=== PATIENT | male | born 1960 | race Caucasian/White ===

== ENCOUNTER 2022-06-05 14:26 | Outpatient (CLI) | payer OTHER, SELFPAY | END 2022-06-05 14:27 | disposition home or self-care (01) | LOC: ANHAUDIO 14:27 | PROVIDERS: PCP Family Medicine; Visit Provider Family Medicine | DX: H91.90 Unspecified hearing loss, unspecified ear (principal) | CPT/HCPCS: 92557; 92567 ==

== ENCOUNTER 2022-06-26 11:45 | Outpatient (CLI) | payer OTHER, SELFPAY ==
[2022-06-26 22:09] LABS: Hemoglobin A1C 8.2 % (<5.7)
== END 2022-06-26 11:46 | disposition home or self-care (01) ==
LOC: ANHGOSHLAB 11:47
PROVIDERS: PCP Family Medicine; Visit Provider Family Medicine
DX: E03.9 Hypothyroidism, unspecified (principal); E11.620 Type 2 diabetes mellitus with diabetic dermatitis
CPT/HCPCS: 36415; 83036; 84443

== ENCOUNTER 2022-07-03 16:47 | Outpatient (CLI) | payer OTHER, SELFPAY ==
--- NOTE | ~2022-07-03 | US_ITS ---
EXAMINATION:US venous doppler LE RT INDICATION:Right leg pain TECHNIQUE: Multiple grayscale, color flow and Doppler images of the right lower extremity deep venous systems were obtained and reviewed. COMPARISON:Ultrasound dated 03/05/2007 FINDINGS: The common femoral, superficial femoral and popliteal veins demonstrate normal respiratory variation, augmentation and compressibility. Color flow is also seen within the posterior tibial, pe roneal, greater saphenous and profunda veins. IMPRESSION: 1: No lower extremity deep venous thrombosis. Reviewed, dictated and finalized at location A.
== END 2022-07-03 16:48 | disposition home or self-care (01) ==
PROVIDERS: PCP Family Medicine; Visit Provider Family Medicine
DX: I82.461 Acute embolism and thrombosis of right calf muscular vein (principal)
CPT/HCPCS: 93971

== ENCOUNTER 2023-01-07 14:16 | Outpatient (RCR) | payer OTHER, SELFPAY ==
[2023-01-07 14:31] VITALS: BMI 39.8
[2023-01-07 15:29] VITALS: BMI 39.8
== END 2023-03-24 08:25 | disposition home or self-care (01) ==
LOC: ANHDMC 14:16
PROVIDERS: PCP Family Medicine; Visit Provider Internal Medicine Endocrinology, Diabetes & Metabolism
DX: E11.65 Type 2 diabetes mellitus with hyperglycemia (principal); Z71.3 Dietary counseling and surveillance
CPT/HCPCS: 97802

== ENCOUNTER 2023-01-09 15:47 | Outpatient (CLI) | payer OTHER, SELFPAY ==
[2023-01-09 20:06] LABS: Alanine Aminotransferase 56 U/L (6-50); Albumin Level 4.7 g/dL (3.5-5.1); Alkaline Phosphatase 78 U/L (38-126); Anion Gap 5 mmol/L (8-16); Aspartate Amino Transferase 38 U/L (17-59); Bilirubin,Total 0.7 mg/dL (0.2-1.3); Blood Urea Nitrogen 11 mg/dL (9-20); Calcium 9.2 mg/dL (8.4-10.2); Carbon Dioxide 29 mmol/L (22-30); Chloride 101 mmol/L (98-107); Cholesterol 148 mg/dL (0-200); Estimated Glomerular Filt Rate > 60; Glucose 104 mg/dL (65-110); HDL Direct 40 mg/dL; Potassium 3.9 mmol/L (3.4-5.0); Sodium 135 mmol/L (137-145); Triglycerides 150 mg/dL (<150)
[2023-01-09 20:17] LABS: LDL Cholesterol Direct 81 mg/dL
[2023-01-09 21:03] LABS: Hemoglobin A1C 8.8 % (<5.7)
[2023-01-09 21:30] LABS: MALB Creatinine Ratio < 30.0 mg/g (0-30); Microalbumin Urine Random < 6.0 mg/L (0-16.7)
== END 2023-01-09 15:48 | disposition home or self-care (01) ==
LOC: ANHGOSHLAB 15:49
PROVIDERS: PCP Family Medicine; Visit Provider Family Medicine
DX: E11.9 Type 2 diabetes mellitus without complications (principal); E03.9 Hypothyroidism, unspecified
CPT/HCPCS: 36415; 80053; 80061; 82043; 83036; 84443

== ENCOUNTER 2023-05-14 15:46 | Outpatient (CLI) | payer OTHER, SELFPAY ==
[2023-05-14 22:35] LABS: Hemoglobin A1C 6.9 % (<5.7)
== END 2023-05-14 15:47 | disposition home or self-care (01) ==
LOC: ANHGOSHLAB 15:48
PROVIDERS: PCP Family Medicine; Visit Provider Nurse Practitioner Family
DX: E11.620 Type 2 diabetes mellitus with diabetic dermatitis (principal); E03.9 Hypothyroidism, unspecified
CPT/HCPCS: 36415; 83036; 84443

== ENCOUNTER 2023-08-14 12:38 | Outpatient (CLI) | payer OTHER, SELFPAY ==
[2023-08-14 13:56] LABS: Alanine Aminotransferase 58 U/L (6-50); Albumin Level 4.5 g/dL (3.5-5.1); Alkaline Phosphatase 67 U/L (38-126); Anion Gap 6 mmol/L (8-16); Aspartate Amino Transferase 53 U/L (17-59); Bilirubin,Total 0.8 mg/dL (0.2-1.3); Blood Urea Nitrogen 18 mg/dL (9-20); Calcium 9.4 mg/dL (8.4-10.2); Carbon Dioxide 34 mmol/L (22-30); Chloride 97 mmol/L (98-107); Cholesterol 143 mg/dL (0-200); Estimated Glomerular Filt Rate > 60; Glucose 93 mg/dL (65-110); HDL Direct 39 mg/dL; Potassium 3.8 mmol/L (3.4-5.0); Sodium 137 mmol/L (137-145); Triglycerides 125 mg/dL (<150)
[2023-08-14 14:07] LABS: LDL Cholesterol Direct 83 mg/dL
[2023-08-14 14:27] LABS: Thyroid Stimulating Hormone 0.186 uIU/mL (0.465-4.680)
[2023-08-14 15:34] LABS: MALB Creatinine Ratio 9.8 mg/g (0-30); Microalbumin Urine Random 6.1 mg/L (0-16.7)
[2023-08-14 18:14] LABS: Hemoglobin A1C 6.4 % (<5.7)
[2023-08-15 18:11] LABS: Prostate Specific Antigen 1.1 ng/mL (< OR = 4.0)
== END 2023-08-14 12:39 | disposition home or self-care (01) ==
LOC: ANHGOSHLAB 12:40
PROVIDERS: PCP Family Medicine; Visit Provider Family Medicine
DX: E03.9 Hypothyroidism, unspecified (principal); E11.9 Type 2 diabetes mellitus without complications; G57.90 Unspecified mononeuropathy of unspecified lower limb; Z12.5 Encounter for screening for malignant neoplasm of prostate
CPT/HCPCS: 36415; 80053; 80061; 82043; 82607; 83036; 84153; 84443; G0103

== ENCOUNTER 2024-04-16 11:02 | Outpatient (CLI) | payer OTHER, SELFPAY ==
--- NOTE | ~2024-04-16 | XR_ITS ---
EXAMINATION: XR lumbar spine 2-3V DATE: 04/16/2024 11:59 INDICATION: Chronic low back pain TECHNIQUE: Anteroposterior and lateral views of the lumbar spine, and cone-down lateral view of the l umbosacral junction were obtained. COMPARISON: None. FINDINGS: Alignment is normal. Vertebral body heights are normal. Mild disc height loss at L2-L3. Mild to moder ate lower lumbar facet osteoarthritis. Chronic heterotopic ossification and irregular cortical contou r along the left anterior iliac spine without interval change since obstructive series dated 2 which is likely sequela of old trauma. IMPRESSION: 1. Mild lumbar spondylosis. Reviewed, dictated and finalized at location A. IMPRESSION: 1. Mild lumbar spondylosis.
--- NOTE | ~2024-04-16 | XR_ITS ---
AP view of the pelvis and AP and lateral views of the bilateral hips Clinical history: Pain Findings: No acute fracture or dislocation is seen. Osseous alignment is anatomic. Bilateral hip and SI joint spaces are preserved. Soft tissues are unremarkable. Impression: No significant abnormality is seen. Reviewed, dictated and finalized at [facility]. Impression: No significant abnormality is seen.
== END 2024-04-16 11:03 ==
LOC: GOSHIMG 11:03
PROVIDERS: PCP Family Medicine; Visit Provider Nurse Practitioner Family
DX: M43.06 Spondylolysis, lumbar region (principal); G89.29 Other chronic pain; M25.559 Pain in unspecified hip
CPT/HCPCS: 72100; 73521

== ENCOUNTER 2024-06-25 11:44 | Outpatient (CLI) | payer OTHER, SELFPAY ==
[2024-06-25 13:21] LABS: Alanine Aminotransferase 52 U/L (6-50); Albumin Level 4.6 g/dL (3.5-5.1); Alkaline Phosphatase 75 U/L (38-126); Anion Gap 3 mmol/L (4-12); Aspartate Amino Transferase 60 U/L (17-59); Bilirubin,Total 1.1 mg/dL (0.2-1.3); Blood Urea Nitrogen 18 mg/dL (9-20); Calcium 9.3 mg/dL (8.4-10.2); Carbon Dioxide 32 mmol/L (22-30); Chloride 103 mmol/L (98-107); Cholesterol 143 mg/dL (0-200); Estimated Glomerular Filt Rate > 60; Glucose 152 mg/dL (65-110); HDL Direct 39 mg/dL; Potassium 4.7 mmol/L (3.4-5.0); Sodium 138 mmol/L (137-145); Triglycerides 247 mg/dL (<150)
[2024-06-25 13:31] LABS: LDL Cholesterol Direct 78 mg/dL
[2024-06-25 14:05] LABS: Hemoglobin A1C 10.2 % (<5.7)
== END 2024-06-25 11:45 | disposition home or self-care (01) ==
LOC: ANHGOSHLAB 11:46
PROVIDERS: PCP Family Medicine; Visit Provider Family Medicine
DX: E03.9 Hypothyroidism, unspecified (principal); E11.9 Type 2 diabetes mellitus without complications
CPT/HCPCS: 36415; 80053; 80061; 83036; 84443

== ENCOUNTER 2025-06-29 14:41 | Outpatient (CLI) | payer MEDICARE, SELFPAY ==
--- OUTSIDE RECORDS SUMMARY | 2025-06-29 14:49 | XMS_ITS | Clinical Summary ---
Author Organization [facility] Address [address] [place]ilar: Epic Prelude ADT [place] [address] Care Team Providers Care Opto Mechanical Technician Name Role Phone Unavailable Primary Care Provider Unavailabl e Allergies Active Allergy Reactions Criticality Noted Date Comments Lisinopril Angioedema High 07/08/2023 Medications glyBURIDE (DIABETA) 2.5 mg tablet Take 1 Tablet (2.5 mg) by mouth 2 times daily. 180 Tablet 3 2 12:41 PM SUEDING MACHINE TENDER 04/15/20 22 Active sAXagliptin (Onglyza) 5 mg tablet TAKE ONE TABLET BY MOUTH ONCE DAILY 90 Tablet 1 2 5:08 PM SUEDING MACHINE TENDER 07/30/20 22 Active lisinopriL (PRINIVIL) 10 mg tablet Take 1 Tablet (10 mg) by mouth daily. 90 Tablet 3 3 3:38 PM CDT 12/12/19 23 Active semaglutide (Ozempic) 0.25 mg or 0.5 mg(2 mg/1.5 mL) Pen Injector Inject 0.5 mg by subcutaneous injection every 7 days at dinner. 4.5 mL 2 3 3:01 PM CDT 12/16/19 23 Active flash glucose sensor (FreeStyle Gerardo 14 Day Sensor) Kit Change sensor every 14 days 6 Kit 3 12/16/19 23 Active inhalational spacing device (Aerochamber Max with Flow-VU) Spacer USE DIRECTED WITH INHALER 10 Each 3 4:23 PM SUEDING MACHINE TENDER 01/25/20 23 Active omeprazole (PriLOSEC) 20 mg Capsule, Delayed Release(E.C.) Take 1 Capsule (20 mg) by mouth once daily 30 minutes to 1 hour before a meal 90 Capsule 3 3 2:13 PM SUEDING MACHINE TENDER 04/14/20 23 Active triamterene-hyd roCHLOROthiazid e (MAXZIDE 25) 37.5-25 mg tablet Take 1 Tablet by mouth daily in the morning. 90 Tablet 1 3 2:13 PM SUEDING MACHINE TENDER 06/13/20 23 Active losartan (COZAAR) 25 mg tablet Take 1 Tablet (25 mg) by mouth daily. 30 Tablet 3 12:46 PM CDT 07/08/20 23 Active diphenhydrAMINE 12.5 mg/5 mL-viscous lidocaine-Maalo x 1:1:1 (MAGIC MOUTHWASH) oral suspension compound Swish and spit 5 mL by mouth every 2 hours as needed for mouth sores; diphenhydramine 12.5 mg/5 mL oral elixir 40 mL; Lidocaine Viscous 2 % mucosal solution 40 mL; Maalox 200 mg-200 mg-20 mg/5 mL oral suspension 40 mL; Per 120 mL 120 mL 1 07/18/20 23 Active triamcinolone acetonide (KENALOG) 0.1 % Cream APPLY TO THE AFFECTED AREA TWICE DAILY. 30 Gram 3 5:11 PM CDT 07/29/20 23 Active dorzolamide (TRUSOPT) 2 % solution ADMINISTER 1 DROP IN BOTH EYES TWICE DAILY 10 mL 1 3 5:23 PM CDT 08/27/20 23 Active brimonidine-luz oloL (Combigan) 0.2-0.5 % solution Administer 1 Drop in both eyes 3 times daily. 5 mL 3 09/02/20 23 Active brimonidine-luz oloL (Combigan) 0.2-0.5 % solution Administer 1 Drop in both eyes 2 times daily. 5 mL 6 3 5:48 PM SUEDING MACHINE TENDER 10/02/20 23 Active tobramycin-dexA METHasone (TOBRADEX) 0.3-0.1 % suspension Administer 1 Drop in left eye 4 times daily. Starting after surgery. 5 mL 3 6:24 PM SUEDING MACHINE TENDER 10/06/20 23 Active prednisoLONE acetate (Pred Forte) 1 % suspension Administer 1 drop in left eye twice daily 10 mL 4 4 5:03 PM SUEDING MACHINE TENDER 12/01/19 24 Active traMADoL (ULTRAM) 50 mg tablet Take 1 Tablet (50 mg) by mouth every 4 hours as needed for pain. 30 Tablet 1 4 5:06 PM SUEDING MACHINE TENDER 12/05/19 24 Active ALPRAZolam (XANAX) 0.25 mg tablet Take 1 Tablet (0.25 mg) by mouth 3 times daily as needed for anxiety 60 Tablet 4 6:33 PM SUEDING MACHINE TENDER 12/29/19 24 Active semaglutide (Ozempic) 1 mg/dose (4 mg/3 mL) Pen Injector Inject 1 mg (0.75 mL) subcutaneously once weekly. 9 mL 3 02/18/20 24 Active traZODone (DESYREL) 50 mg tablet Take 1 tablet nightly at bedtime. 90 Tablet 3 05/21/20 24 Active semaglutide (Ozempic) 1 mg/dose (4 mg/3 mL) Pen Injector Inject 1 mg by subcutaneous injection every 7 days. 9 mL 3 4 12:27 PM CDT 05/26/20 24 Active traZODone (DESYREL) 50 mg tablet Take 1 Tablet (50 mg) by mouth daily. 90 Tablet 1 4 6:09 PM CDT 06/09/20 24 Active ALPRAZolam (XANAX) 0.5 mg tablet Take 1 Tablet (0.5 mg) by mouth 3 times daily as needed for anxiety. 90 Tablet 1 4 2:44 PM CDT 06/09/20 24 Active Insulin [place], Disposable, (Pen Needle) 32 gauge x 5/32 Needle Use with insulin as directed. 100 Each 1 4 4:53 PM CDT 06/11/20 24 Active latanoprost (XALATAN) 0.005 % solution Instill one drop into each eye once at bedtime. 2.5 mL 1 4 2:14 PM CDT 06/16/20 24 Active omeprazole (PriLOSEC) 20 mg Capsule, Delayed Release(E.C.) TAKE ONE CAPSULE BY MOUTH ONCE DAILY 30 MINUTES TO 1 HOUR BEFORE A MEAL. 90 Capsule 1 4 4:49 PM CDT 07/15/20 24 Active albuterol sulfate HFA 90 mcg/actuation aerosol inhaler Administer 1 puff by mouth every 4 hours as needed for shortness of breath or wheezing 8.5 Gram 3 4 4:45 PM CDT 08/31/20 24 Active pEG 400-propylene glycol (Systane, PF,) 0.4-0.3 % solution Instill one drop into each eye as needed through out the day as directed 30 Each 2 10/04/20 24 Active buPROPion HCL (WELLBUTRIN XL) 150 mg Extended Release 24 hour tablet Take one tablet (150 mg) orally every morning; to be taken with 300mg for total of 450mg total q day 90 Tablet 1 5 11:54 AM SUEDING MACHINE TENDER 10/05/20 24 Active insulin glargine (LANTUS) 100 unit/mL pen syringe Inject 14 Units by subcutaneous injection 2 times daily. 30 mL 1 5 12:44 PM CDT 10/05/20 24 Active metFORMIN (GLUCOPHAGE XR) 500 mg Extended Release 24 hour tablet Take 2 Tablets (1,000 mg) by mouth 2 times daily. 360 Tablet 1 5 2:42 PM CDT 10/25/20 24 Active glyBURIDE (DIABETA) 5 mg tablet Take 1 Tablet (5 mg) by mouth 2 times daily. 180 Tablet 1 5 8:06 AM CDT 11/30/19 25 Active latanoprost (XALATAN) 0.005 % solution Instill one drop in each eye once at bedtime. 2.5 mL 5 8:11 AM SUEDING MACHINE TENDER 11/30/19 25 Active dapagliflozin propanediol (FARXIGA) 10 mg Tablet Take 1 Tablet (10 mg) by mouth daily. 90 Tablet 3 01/06/20 25 Active latanoprost (XALATAN) 0.005 % solution Administer 1 Drop in both eyes daily at bedtime. 2.5 mL 12 5 1:04 PM CDT 01/18/20 25 Active latanoprost (XALATAN) 0.005 % solution Instill one drop each eye once at bedtime 2.5 mL 12 5 5:33 PM CDT 01/18/20 25 Active levothyroxine 200 mcg tablet Take 1 Tablet (200 mcg) by mouth daily. 90 Tablet 1 5 7:39 PM CDT 02/16/20 25 Active sertraline (ZOLOFT) 100 mg tablet Take 1 Tablet (100 mg) by mouth 2 times daily. 180 Tablet 1 5 8:06 AM CDT 04/14/20 25 Active buPROPion HCL (WELLBUTRIN XL) 150 mg Extended Release 24 hour tablet Take 1 Tablet (150 mg) by mouth daily in the morning WITH 300 MG DOSE TO EQUAL 450 MG TOTAL DAILY DOSE. 90 Tablet 1 5 12:44 PM CDT 04/25/20 25 Active Insulin [place], Disposable, (Pen Needle) 32 gauge x 5/32 Needle Use with Insulin Pen for injections. 100 Each 1 5 12:44 PM CDT 04/25/20 25 Active buPROPion HCL (WELLBUTRIN XL) 300 mg Extended Release 24 hour tablet TAKE ONE TABLET BY MOUTH ONCE DAILY 90 Tablet 1 5 12:59 PM CDT 05/13/20 25 Active atorvastatin (LIPITOR) 10 mg tablet Take 1 Tablet (10 mg) by mouth daily. 90 Tablet 1 5 7:39 PM CDT 05/30/20 25 Active semaglutide (Ozempic) 1 mg/dose (4 mg/3 mL) Pen Injector Inject 1 mg by subcutaneous injection every 7 days. 3 mL 5 7:39 PM CDT 06/06/20 25 Active clonazePAM (KlonoPIN) 1 mg tablet Take 1 Tablet (1 mg) by mouth 2 times daily. 180 Tablet 1 5 3:09 PM CDT 06/13/20 25 Active flash glucose sensor (FreeStyle Gerardo 14 Day Sensor) Kit Apply one sensor As directed every 14 days 6 Each 3 06/27/20 25 Active cyclobenzaprine (FLEXERIL) 10 mg tablet Take 1 Tablet (10 mg) by mouth 3 times daily as needed FOR MUSCLE SPASMS. 30 Tablet 2 06/29/20 25 Active flash glucose sensor (FreeStyle Gerardo 14 Day Sensor) Kit Apply one sensor As directed every 14 days 6 Each 3 4 3:58 PM SUEDING MACHINE TENDER 05/13/20 24 025 Discontin ued(Reord er) clonazePAM (KlonoPIN) 1 mg tablet Take 1 Tablet (1 mg) by mouth 2 times daily. 180 Tablet 1 5 1:34 PM CDT 10/13/20 24 025 Discontin ued(Reord er) Social History Tobacco Use Types Packs/Day Years Used Date Smoking Tobacco: Never Assessed Sex and Gender Information Value Date Recorded Sex Assigned at Not on file Legal Sex Male 3:27 PM CDT Gender Identity Not on file Sexual Orientation Not on file Plan of Treatment Health Maintenance Due Date Last Done Comments DTAP/TDAP/TD VACCINES (1 - Tdap) 1979 COLORECTAL SCREENING 2005 Colorectal Cancer Screening 2005 FIT-DNA Q 3 years 2005 FIT/FOBT Q 1 year 2005 Flex Sig/CT Colonography Q 5 years 2005 PNEUMOCOCCAL VACCINE 50+ YEARS (1 of 1 - PCV) 05/29/20 10 ZOSTER VACCINE (1 of 2) 2010 RSV VACCINE (60+ or ) (1 - Risk 60-74 years 1-dose series) 2020 INFLUENZA VACCINE (#1) 2025 Insurance RX [employer] Commercial RX [employer] (INTERNAL) [facility] RX [employer] Medicare Part D
--- OUTSIDE RECORDS SUMMARY | 2025-06-29 14:49 | XMS_ITS | Clinical Summary ---
Author Organization [facility] Address [address] [place] [address] Care Team Providers Care Simplex Operator Name Role Phone Cecilio Anaya MD Primary Care Provider [phone] Source Comments [facility],non-owned Affiliates and Associated Physician Practices is amultiple site organization consisting of ambulatory clinics and hospital sitesin [place], [place], [place] and [place]. This disclosure is being madepursuant to the Care Everywhere program and may not contain all information available regarding this patient. Last updated 18.[facility] Allergies No known active allergies Social History Tobacco Use Types Packs/Day Years Used Date Smoking Tobacco: Never Assessed Sex and Gender Information Value Date Recorded Sex Assigned at Not on file Legal Sex Male 1:21 PM CDT Gender Identity Not on file Sexual Orientation Not on file Last Filed Vital Signs Vital Sign Reading Time Taken Comments Blood Pressure 130/85 08/07/2015 1:22 PM CDT Pulse 87 08/07/2015 1:22 PM CDT Temperature 37.1 C (98.7 F) 08/07/2015 1:22 PM CDT Respiratory Rate 18 08/07/2015 1:22 PM CDT Oxygen Saturation 97% 08/07/2015 1:22 PM CDT Inhaled Oxygen Concentration - - Weight 122.5 kg (270 lb) 08/07/2015 1:22 PM CDT Height 177.8 cm (5' 10) 08/07/2015 1:22 PM CDT Body Mass Index 38.74 08/07/2015 1:22 PM CDT Plan of Treatment Health Maintenance Due Date Last Done Comments GUNNER (AGES 45-75) - COL ON CA SCREENING 1960 COLON MONITORING 1960 COLONOSCOPY - COLON CA SCREENING 1960 CT COLONOGRAPHY - COLON CA SCREENING 1960 Colorectal Cancer Screening 1960 FIT - COLON CA SCREENING 1960 FLEX SIG - COLON CA SCREENING 1960 LIPID TESTING 1960 HIV SCREENING 1975 HEPATITIS C SCREENING 05/25/1978 DTAP/TDAP/TD VACCINES (1 - Tdap) 1979 PNEUMOCOCCAL VACCINE 50+ (1 of 1 - PCV) 2010 ZOSTER VACCINE (1 of 2) 2010 COVID-19 VACCINE (1 - 2023-2 5 season) 2024 DEPRESSION SCREENING 11/24/2024 INFLUENZA VACCINE (#1) 2025 Respiratory Syncytial Virus (RSV) Vaccine Pt: or over 60 yrs (1 - 1-dose 75+ series) 2035 HEPATITIS B VACCINE Aged Out No longe r eligible based on patient's age to complete this topic HIB VACCINE Aged Out No longer eligi ble based on patient's age to complete this topic HPV VACCINE Aged Out No longer eligi ble based on patient's age to complete this topic MENINGOCOCCAL (Group B) VACC INE SHARED DECISION-MAKING Aged Out No longer eligibl e based on patient's age to complete this topic MENINGOCOCCAL GROUPS A/C/Y/W VACCINE Aged Out No longer eligible b ased on patient's age to complete this topic Insurance [facility] [address] [place], [place] [id number] [facility] [email or web address] Care Teams Simplex Operator Relationship Specialty Start Date End Date Cecilio Anaya MD [address] [place] [id number] PCP - General Family Medicine 08/07/15
--- OUTSIDE RECORDS SUMMARY | 2025-06-29 14:49 | XMS_ITS | Clinical Summary ---
Author Organization [address] Address [address] [place] [address] Care Team Providers Care Garage Construction Equipment Mechanic Name Role Phone Cecilio Anaya MD Primary Care Provider [phone] Allergies Active Allergy Reactions Criticality Noted Date Comments Lisinopril Angioedema High 07/08/2023 Medications albuterol sulfate (PROAIR RESPICLICK) 90 mcg/actuation aerosol powdr breath activated 90 mcg. 0 Inhaler 0 5 Active lisinopril (PRINIVIL,ZESTRI L) 10 mg tablet 10 mg. 0 0 5 Active Additional Information Patient not taking.Reported on 05/21/2024 sertraline (ZOLOFT) 100 mg tablet 100 mg. 0 0 5 Active Additional Information Patient taking differently: 200 mg, Reported on 05/21/2024 triamterene-hydr oCHLOROthiazide (MAXZIDE,DYAZIDE ) 37.5-25 mg per tablet 0 0 5 Active fluticasone-salm eterol (ADVAIR DISKUS) 250-50 mcg/dose diskus inhaler 0 0 5 Active aspirin (ASPIR-81) 81 mg tablet take 1 tablet by oral route every day 0 0 7 Active metFORMIN (GLUCOPHAGE) 1,000 mg tablet take 1 tablet by oral route 2 times every day with morning and evening meals 0 0 05/23/201 7 Active levothyroxine (SYNTHROID, LEVOTHROID) 200 mcg tablet take 1 tablet by oral route every day 0 0 7 Active buPROPion (WELLBUTRIN) 100 mg tablet 100 mg. 0 0 7 Active Additional Information Patient taking differently: 450 mg, Reported on 05/21/2024 atorvastatin (LIPITOR) 10 mg tablet 7 Active glimepiride (AMARYL) 4 mg tabletIndication s:type 2 diabetes mellitus 2.5 mg 7 Active omeprazole (PriLOSEC) 20 mg capsule 7 Active ONGLYZA 5 mg tabletIndication s:type 2 diabetes mellitus 7 Active JARDIANCE 25 mg tabletIndication s:type 2 diabetes mellitus 7 Active flash glucose sensor (FreeStyle Gerardo 14 Day Sensor) kit Change sensor every 14 days 3 Active LANTUS 100 unit/mL (3 mL) pen for injection 3 Active traZODone (DESYREL) 50 mg tabletIndication s:Persistent disorder of initiating or maintaining sleep Take trazodone 50 mg 1 tablet nightly at bedtime. 90 tablet 3 4 Active Active Problems Problem Noted Date Diagnosed Date Class 2 severe obesity due t o excess calories with serious comorbidity and body mass index (BMI) of 38.0 to 38.9 in adult 12/16/2022 Essential hypertension 08/06/2016 Overview (02/28/2017): Essential hypertension Obstructive sleep apnea syndrome 08/06/2016 Overview (02/28/2017): Obstructive sleep apnea Assessment & Plan (05/14/2019 10:44 AM CDT): He will wear his APAP set from 9-20 cm water pressure nightly. He will strive to increase his sleep time to 7-9 hours. He has no problems maintaining wakefulness throughout the day. His [place] sleepiness score is a 1. Assessment & Plan (05/16/2017 3:37 PM CDT): He is compliant with his APAP therapy. His [place] sleepiness score is 0. He has no problems maintain wakefulness when driving. He meets DOT requirements. Controlled type 2 diabetes mellitus without comp lication 08/06/2016 Overview (02/28/2017): Type 2 diabetes mellitus without complication, without long-term current use of insulin Persistent disorder of initiating or maintaining sleep 08/11/2015 Overview (02/28/2017): Persistent disorder of initiating or maintaining sleep Assessment & Plan (05/14/2019 10:43 AM CDT): Reviewed and discussed good sleep hygiene habits with the patient. He should plan a set sleep-wake pattern with planned bedtime at 10:00 p.m. And final awakening at 6-7 a.m.. He will take trazodone 50 mg nightly. Assessment & Plan (05/16/2017 3:33 PM CDT): He will continue to keep a set sleep-wake pattern maintaining 7-8 hours of sleep nightly. Hypertension 08/11/2015 Overview (02/28/2017): Hypertension Resolved Problems Problem Noted Date Diagnosed Date Resolved Date Class 2 severe obesity due t o excess calories with serious comorbidity and body mass index (BMI) of 35.0 to 35.9 in adult 05/07/2018 3 Assessment & Plan (05/14/2019 10:43 AM CDT): Obesity is improving with lifestyle modifications. Discussed the patient's BMI. The BMI is in the acceptable range. Informal exercise measures discussed, e.g. taking stairs instead of elevator. Obesity with body mass index 30 or greater 04/15/2017 05/07/2018 Overview (04/18/2017): Adult BMI 39.0-39.9 kg/sq m Morbid obesity 08/11/2015 05/07/2018 Overview (02/28/2017): Body mass index 40.0-44.9, adult Class 2 obesity due to exces s calories without serious comorbidity with body mass index (BMI) 39.0 to 39.9 in adult 08/11/20152022 Overview (02/28/2017): Abnormal chest sounds Assessment & Plan (05/16/2017 3:35 PM CDT): Obesity is improving with lifestyle modifications. Discussed the patient's BMI. The BMI is above average; BMI management plan is completed. General weight loss/lifestyle modification strategies discussed (elicit support from others; identify saboteurs; non-food rewards, etc). Surgical History Surgery Date Site/Laterality Comments FACIAL SURGERY facial surgery OTHER SURGICAL HISTORY thoracic surgery with removal of foreign body OTHER SURGICAL HISTORY Right Eye surgery-partial detach retina Medical History Medical History Date Comments Type 2 diabetes mellitus Diabete s type 2; Comments: [facility] 08/02/2015 - Anxiety disorder Anxiety Hypertension Hypertension Depression Depression Adiposity Obesity Hyperthyroidism Hyperthyroidism; Comments: [facility] 08/02/2015 - Asthma Asthma Social History Tobacco Use Types Packs/Day Years Used Date Smoking Tobacco: Never Tobacco Cessation:Counseling Given: Not Answered Alcohol Use Standard Drinks/Week Comments No 0 (1 standard drink = 0.6 oz pur e alcohol) Personal Safety Answer Date Recorded Getting School Help Needed Not on file 12/14 Sex and Gender Information Value Date Recorded Sex Assigned at Not on file Legal Sex Male 11:50 AM ASSOCIATE SOFTWARE DEVELOPMENT ENGINEER Gender Identity Not on file Sexual Orientation Not on file Obstetrics History Last Filed Vital Signs Vital Sign Reading Time Taken Comments Blood Pressure 126/82 05/21/2024 2:59 PM CDT Pulse 89 05/21/2024 2:59 PM CDT Temperature 36.2 C (97.1 F) 05/21/2024 2:59 PM CDT Respiratory Rate 25 05/21/2024 2:59 PM CDT Oxygen Saturation 95% 05/21/2024 2:59 PM CDT Inhaled Oxygen Concentration - - Weight 121.9 kg (268 lb 12.8 oz) 05/21/2024 2:59 PM CDT Height 177.8 cm (5' 10) 05/21/2024 2:59 PM CDT Body Mass Index 38.57 05/21/2024 2:59 PM CDT Plan of Treatment Health Maintenance Due Date Last Done Comments Albumin Creatinine Ratio, Urine 1960 Colon Cancer Screening-Colonoscopy 1960 Depression Screening 1960 Fall Risk Assessment 1960 Hemoglobin A1C 1960 Hepatitis C Screening 1960 Prostate Cancer Screening-PSA 1960 eGFR 1960 Dilated Eye Exam 1960 Foot Exam 1960 Lipid Panel 1960 DTaP/Tdap/Td Vaccine (1 - Tdap) 1971 Hepatitis B Screening 1978 Zoster Vaccine (1 of 2) 2010 Pneumococcal vaccine 65+ (2 of 2 - PCV) 11/24/2012 11/24/2011 Abdominal Aortic Aneurysm (A AA) Screen 2025 Well Visit 65+ 2025 Influenza Vaccine (#1) 2025 9, 08/29/2018, 09/03/2016, Additional history exists Insurance [facility] Address: [facility] [id number] [place] [id number] [facility] Address: [facility] [id number] [place] [address] Care Teams Garage Construction Equipment Mechanic Relationship Specialty Start Date End Date Cecilio Anaya MD PCP - General 08/12/14
--- OUTSIDE RECORDS SUMMARY | 2025-06-29 14:49 | XMS_ITS | Clinical Summary ---
Author Organization [facility] Address [address] [place] [id number] Care Team Providers Care Fur Storage Clerk Name Role Phone Unavailable Primary Care Provider Unavailabl e Social History Tobacco Use Types Packs/Day Years Used Date Smoking Tobacco: Never Assessed Sex and Gender Information Value Date Recorded Sex Assigned at Not on file Legal Sex Male 5:40 PM CDT Gender Identity Not on file Sexual Orientation Not on file Plan of Treatment Health Maintenance Due Date Last Done Comments Colorectal Cancer Screening Colonoscopy (10 Years) 1960 Hepatitis C 1978 DTaP, Tdap and Td Vaccines ( 1 - Tdap) 1979 Pneumococcal Vaccine: 50+ Ye ars (1 of 1 - PCV) 2010 Zoster Vaccines (1 of 2) 2010 COVID-19 Vaccine ( - 2023-2 5 season) 2024 RSV Immunization or 60+ Years (1 - 1-dose 75+ series) 2035 Meningococcal B Vaccine Aged Out No l onger eligible based on patient's age to complete this topic Meningococcal Vaccine Aged Out No chuck ml eligible based on patient's age to complete this topic RSV Immunizations Under 20 Months Aged Out No longer eligible based on patient's age to complete this topic
[2025-06-29 18:01] LABS: Add Urine Microscopic? NO; Appearance Urine Clear (Clear); Glucose Urine UA Negative (Negative); Leukocyte Esterase Ur Negative LEU/UL (Negative); Nitrate Urine Negative (Negative); Specific Grav Ur 1.017 (1.001-1.035)
[2025-06-29 18:17] LABS: Alanine Aminotransferase 68 U/L (6-50); Albumin Level 4.3 g/dL (3.5-5.1); Alkaline Phosphatase 71 U/L (38-126); Anion Gap 6 mmol/L (4-12); Aspartate Amino Transferase 53 U/L (17-59); Bilirubin,Total 0.9 mg/dL (0.2-1.3); Blood Urea Nitrogen 14 mg/dL (9-20); Calcium 9.2 mg/dL (8.4-10.2); Carbon Dioxide 29 mmol/L (22-30); Chloride 100 mmol/L (98-107); Cholesterol 139 mg/dL (0-200); Estimated Glomerular Filt Rate > 60; Glucose 151 mg/dL (65-110); HDL Direct 35 mg/dL; Potassium 4.5 mmol/L (3.4-5.0); Sodium 135 mmol/L (137-145); Total Protein 7.1 g/dL (6.3-8.2); Triglycerides 215 mg/dL (<150)
[2025-06-29 18:35] LABS: MALB Creatinine Ratio 8.5 mg/g (0-30)
[2025-06-29 18:53] LABS: Thyroid Stimulating Hormone 0.854 uIU/mL (0.465-4.680)
[2025-06-29 18:56] LABS: Hemoglobin A1C 9.5 % (<5.7)
== END 2025-06-29 14:42 | disposition home or self-care (01) ==
LOC: ANHGOSHLAB 14:42
PROVIDERS: PCP Family Medicine; Visit Provider Family Medicine
DX: E11.3299 Type 2 diabetes mellitus with mild nonproliferative diabetic retinopathy without macular edema, unspecified eye (principal); E03.9 Hypothyroidism, unspecified; M54.9 Dorsalgia, unspecified
CPT/HCPCS: 36415; 80053; 80061; 81003; 82043; 83036; 84443

== ENCOUNTER 2025-09-09 09:19 | Outpatient (CLI) | payer MEDICARE, SELFPAY ==
--- OUTSIDE RECORDS SUMMARY | 2025-09-09 09:46 | XMS_ITS | Clinical Summary ---
Author Organization [facility] Address [address] 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 180 Tablet 3 2 12:41 PM IN HOME AIDE 04/15/20 22 Active sAXagliptin (Onglyza) 5 mg tablet TAKE ONE TABLET BY MOUTH ONCE DAILY 90 Tablet 1 2 5:08 PM IN HOME AIDE 07/30/20 22 Active lisinopriL (PRINIVIL) 10 mg [...] WITH INHALER 10 Each 3 4:23 PM IN HOME AIDE 01/25/20 23 Active omeprazole (PriLOSEC) 20 mg Capsule, Delayed Release(E.C.) Take 1 Capsule (20 mg) by mouth once daily 30 minutes to 1 hour before a meal 90 Capsule 3 3 2:13 PM IN HOME AIDE 04/14/20 23 Active triamterene-hyd roCHLOROthiazid e (MAXZIDE 25) 37.5-25 mg tablet Take 1 Tablet by mouth daily in the morning. 90 Tablet 1 3 2:13 PM IN HOME AIDE 06/13/20 23 Active losartan (COZAAR) 25 mg [...] daily. 5 mL 6 3 5:48 PM IN HOME AIDE 10/02/20 23 Active tobramycin-dexA METHasone (TOBRADEX) 0.3-0.1 % suspension Administer 1 Drop in left eye 4 times daily. Starting after surgery. 5 mL 3 6:24 PM IN HOME AIDE 10/06/20 23 Active prednisoLONE acetate (Pred Forte) 1 % suspension Administer 1 drop in left eye twice daily 10 mL 4 4 5:03 PM IN HOME AIDE 12/01/19 24 Active traMADoL (ULTRAM) 50 mg tablet Take 1 Tablet (50 mg) by mouth every 4 hours as needed for pain. 30 Tablet 1 4 5:06 PM IN HOME AIDE 12/05/19 24 Active ALPRAZolam (XANAX) 0.25 mg tablet Take 1 Tablet (0.25 mg) by mouth 3 times daily as needed for anxiety 60 Tablet 4 6:33 PM IN HOME AIDE 12/29/19 24 Active semaglutide (Ozempic) 1 mg/dose [...] 4 12:27 PM CDT 05/26/20 24 Active ALPRAZolam (XANAX) 0.5 mg tablet Take 1 Tablet (0.5 mg) by mouth 3 times daily as needed for anxiety. 90 Tablet 1 4 2:44 PM CDT 06/09/20 24 Active Insulin [place], Disposable, (Pen Needle) 32 gauge x 5/32 [...] day 90 Tablet 1 5 11:54 AM IN HOME AIDE 10/05/20 24 Active insulin glargine (LANTUS) 100 unit/mL pen syringe Inject 14 Units by subcutaneous injection 2 times daily. 30 mL 1 5 3:33 PM CDT 10/05/20 24 Active latanoprost (XALATAN) 0.005 % solution Instill one drop in each eye once at bedtime. 2.5 mL 5 8:11 AM IN HOME AIDE 11/30/19 25 Active dapagliflozin propanediol (FARXIGA) 10 mg Tablet Take 1 Tablet (10 mg) by mouth daily. 90 Tablet 3 01/06/20 25 Active latanoprost (XALATAN) 0.005 % solution Administer 1 Drop in both eyes daily at bedtime. 2.5 mL 5 1:04 PM CDT 01/18/20 25 Active [...] 2 times daily. 180 Tablet 1 5 12:25 PM CDT 04/14/20 25 Active buPROPion HCL (WELLBUTRIN XL) 150 mg Extended Release 24 hour tablet Take 1 Tablet (150 mg) by mouth daily in the morning WITH 300 MG DOSE TO EQUAL 450 MG TOTAL DAILY DOSE. 90 Tablet 1 5 12:25 PM CDT 04/25/20 25 Active Insulin [place], Disposable, (Pen Needle) 32 gauge x 5/32 Needle Use with Insulin Pen for injections. 100 Each 1 5 3:33 PM CDT 04/25/20 25 Active buPROPion HCL (WELLBUTRIN XL) 300 mg Extended Release 24 hour tablet TAKE ONE TABLET BY MOUTH ONCE DAILY 90 Tablet 1 5 3:28 PM CDT 05/13/20 25 Active atorvastatin (LIPITOR) [...] 2 times daily. 180 Tablet 1 5 3:28 PM CDT 06/13/20 25 Active flash glucose sensor (FreeStyle Gerardo 14 Day Sensor) Kit Apply one sensor As directed every 14 days 6 Each 3 06/27/20 25 Active cyclobenzaprine (FLEXERIL) 10 mg tablet Take 1 Tablet (10 mg) by mouth 3 times daily as needed FOR MUSCLE SPASMS. 30 Tablet 2 5 5:22 PM CDT 06/29/20 25 Active traZODone (DESYREL) 50 mg tablet Take 1 Tablet (50 mg) by mouth daily. 90 Tablet 1 5 3:33 PM CDT 07/12/20 25 Active metFORMIN (GLUCOPHAGE XR) 500 mg Extended Release 24 hour tablet Take 2 Tablets (1,000 mg) by mouth 2 times daily. 360 Tablet 1 5 6:41 PM CDT 07/18/20 25 Active glyBURIDE (DIABETA) 5 mg tablet Take 1 Tablet (5 mg) by mouth 2 times daily. 180 Tablet 1 5 12:25 PM CDT 08/03/20 25 Active Social History Tobacco Use Types Packs/Day Years [...] RX [facility] Commercial RX [employer] (INTERNAL) [employer] Internal Plans [employer] Medicare Part D
--- OUTSIDE RECORDS SUMMARY | 2025-09-09 09:46 | XMS_ITS | Clinical Summary ---
Author Organization [facility] Address [address] [place] [id number] Care Team Providers Care Assessor Name Role Phone Unavailable Primary Care Provider [...] Vaccines (1 of 2) 2010 COVID-19 Vaccine (1 - 2023-2 5 season) 2025 Influenza Adult (#1) 2025 RSV Immunization or 60+ Years (1 - [...]
--- OUTSIDE RECORDS SUMMARY | 2025-09-09 09:46 | XMS_ITS | Clinical Summary ---
Author Organization [address] Address [address] [place] [address] Care Team Providers Care Motion Picture Printer Name Role Phone Cecilio Anaya MD Primary Care Provider [phone] Allergies Active Allergy Reactions Criticality Noted Date [...] problems maintaining wakefulness throughout the day. His Nelson sleepiness score is a 1. Assessment & Plan (05/16/2017 3:37 PM CDT): He is compliant with his APAP therapy. His Nelson sleepiness score is 0. He has no [...] Depression Depression Adiposity Obesity Hyperthyroidism Hyperthyroidism; Comments: [facility] 08/02/2015 - Asthma Asthma Social History Tobacco [...] on file Legal Sex Male 11:50 AM [employer] Gender Identity Not on file Sexual Orientation [...] 9, 08/29/2018, 09/03/2016, Additional history exists Insurance Care Teams Motion Picture Printer Relationship Specialty Start Date End Date Cecilio Anaya MD PCP - General 08/12/14
[2025-09-09 13:01] LABS: Alanine Aminotransferase 55 U/L (6-50); Albumin Level 4.4 g/dL (3.5-5.1); Alkaline Phosphatase 159 U/L (38-126); Anion Gap 9 mmol/L (4-12); Aspartate Amino Transferase 77 U/L (17-59); Bilirubin,Total 1.0 mg/dL (0.2-1.3); Blood Urea Nitrogen 13 mg/dL (9-20); Calcium 9.3 mg/dL (8.4-10.2); Carbon Dioxide 31 mmol/L (22-30); Chloride 96 mmol/L (98-107); Cholesterol 160 mg/dL (0-200); Estimated Glomerular Filt Rate > 60; Glucose 334 mg/dL (65-110); HDL Direct 39 mg/dL; Potassium 4.4 mmol/L (3.4-5.0); Sodium 136 mmol/L (137-145); Total Protein 7.3 g/dL (6.3-8.2); Triglycerides 229 mg/dL (<150)
[2025-09-09 13:29] LABS: MALB Creatinine Ratio 18.8 mg/g (0-30)
[2025-09-09 13:31] LABS: Hemoglobin A1C 11.0 % (<5.7)
[2025-09-09 14:08] LABS: Thyroid Stimulating Hormone 16.800 uIU/mL (0.465-4.680)
== END 2025-09-09 09:20 | disposition home or self-care (01) ==
PROVIDERS: PCP Family Medicine; Visit Provider Family Medicine
DX: E11.3299 Type 2 diabetes mellitus with mild nonproliferative diabetic retinopathy without macular edema, unspecified eye (principal); E03.9 Hypothyroidism, unspecified
CPT/HCPCS: 36415; 80053; 80061; 82043; 83036; 84443

== ENCOUNTER 2025-10-17 16:21 | Emergency (ER) | payer MEDICARE, SELFPAY ==
[2025-10-17] VITALS (9 sets, daily range): BP systolic 109–202; BP diastolic 76–99; PULSE 70–83; RESP 14–21; TEMP 36.4–37.2; O2SAT 94–97
--- NOTE | ~2025-10-17 | CT_ITS ---
EXAMINATION: CT cervical spine wo con DATE: 10/17/2025 18:49 INDICATION: Trauma due to fall. TECHNIQUE: Computed tomography (CT) of the cervical spine was performed without intravenous contrast. Automated exposure control and iterative reconstruction technique were employed. The dose-length product was 538.62 mGy-cm. COMPARISON: None FINDINGS: No acute fractures are cervical vertebrae due to trauma. Significant degenerative disc disease at C5-6, C6-7 levels. Paravertebral soft tissues do not show acute findings. IMPRESSION: 1. No acute findings due to trauma. Significant degenerative disc changes at C5- 6 and C6-7 levels. If symptoms are persistent MRI is indicated. Reviewed, dictated and finalized at location T. AL HUSBANDRY MANAGER IMPRESSION: 1. No acute findings due to trauma. Significant degenerative disc changes at C5 -6 and C6-7 levels. If symptoms are persistent MRI is indicated.
--- NOTE | ~2025-10-17 | CT_ITS ---
EXAMINATION: CT chest, abdomen and pelvis with contrast: DATE: 10/17/2025. INDICATION: Trauma due to fall. TECHNIQUE: CT was performed with 100 cc of IV contrast and reviewed in multiple projections. were obtained. COMPARISON: CT angiogram dated 08/03/2015. FINDINGS: No acute pulmonary findings. No lymphadenopathy or effusion. Benign calcified granuloma right lower lobe, right hilum and mediastinum are normal. No evidence of effusion. No acute findings thoracic spine sternum and ribs. Below the diaphragm, multiple granulomatous lesions of the spleen. No acute findings of the liver, spleen, gallbladder and pancreas. No free fluid in the peritoneal cavity. No free air. Normal size appendix. No inflammatory changes in the pelvis. No acute findings of the lumbar spine and pelvic bones. IMPRESSION: 1. No acute findings in the chest, abdomen and pelvis due to trauma. No free fluid in the peritoneal cavity. 2. Other chronic findings are described above. Reviewed, dictated and finalized at location T. BER HAND IMPRESSION: 1. No acute findings in the chest, abdomen and pelvis due to trauma. No free fl uid in the peritoneal cavity. 2. Other chronic findings are described above.
--- NOTE | ~2025-10-17 | CT_ITS ---
EXAMINATION: CT brain wo con DATE: 10/17/2025 18:49 INDICATION: Trauma due to fall. TECHNIQUE: Computed tomography (CT) of the head was performed without intravenous contrast. The mA was adjusted according to patient size. Iterative reconstruction technique was employed. The dose-length product was 681.00 mGy-cm. COMPARISON: None FINDINGS: No acute intracranial bleed. Small calcified lesion in the left periventricular white matter. No extra-axial collections. No evidence of ventriculomegaly. No acute cranial fracture. IMPRESSION: 1. No acute intracranial lesions due to trauma. Chronic changes as described above. If symptoms are significant MRI is indicated. Reviewed, dictated and finalized at location T. HOLE SHOOTER IMPRESSION: 1. No acute intracranial lesions due to trauma. Chronic changes as described ab ove. If symptoms are significant MRI is indicated.
--- NOTE | 2025-10-17 17:00 | ED_ITS ---
HPI - Fall General Chief Complaint: Fall <Anaya Davis PA-C - Last Filed: 10/18/25 09:30> Stated Complaint: GLF <Anaya Davis PA-C - Last Filed: 10/18/25 09:30> Time Seen by Provider: 10/17/25 17:00 <Anaya Davis PA-C - Last Filed: 10/18/25 09:30> Focused HPI: This is a 65 year old male that presents to the ER for a fall. Reports he has had a lot of balance problems. Reports he started walking to fast and fell down. Reports he fell onto his right side. Reports everything on his right side hurts. He did not hit his head or lose consciousness. GENERAL: Well-appearing, well-nourished, and in no acute distress. HEAD: Normocephalic, atraumatic. CHEST: Clear to auscultation. ?No respiratory distress. HEART: Regular rate and rhythm.? NEURO: ?Alert and oriented x3. Patient screened in triage and initial orders placed.? ?Additional care and disposition to be based upon?diagnostic testing and treatment. <Anaya Davis PA-C - Last Filed: 10/18/25 09:30> Focused HPI: This is a 65 year old male that presents to the ER for a fall. Reports he has had a lot of balance problems and been talking to his PCP about this. Reports he started walking to fast while walking around the house and tripped on his footing falling forward and onto his right side. No head trauma. No blood thinner use. Reports he fell onto his right side. Reports everything on his right side hurts. He did not hit his head or lose consciousness. GENERAL: Well-appearing, well-nourished, and in no acute distress. HEAD: Normocephalic, atraumatic. CHEST: Clear to auscultation. ?No respiratory distress. HEART: Regular rate and rhythm.? NEURO: ?Alert and oriented x3. Patient screened in triage and initial orders placed.? ?Additional care and disposition to be based upon?diagnostic testing and treatment. <Nahid Bolden MD - Last Filed: 10/18/25 01:11> History of Present Illness HPI Narrative: agree with the HPI above <Nahid Bolden MD - Last Filed: 10/18/25 01:11> Related Data Home Medications: Home Medications ?Medication ?Instructions ?Recorded ?Confirmed ?Last Taken ?Type aspirin 81 mg tablet,delayed 81 mg PO DAILY 02/20/22 1 Unknown History release (Adult Aspirin Regimen) latanoprost 0.005 % eye drops 1 drp EACH EYE QPM 06/2509/16/25 Unknown History semaglutide 0.25 mg or 0.5 mg (2 0.25 mg subcut WEEKLY 09/16/25 09/16/25 Unknown History mg/3 mL) subcutaneous pen injector (Ozempic) <Anaya Davis PA-C - Last Filed: 10/18/25 09:30> Allergies/Adverse Reactions: Allergies Allergy/AdvReac Type Severity Reaction Status Date / Time lisinopril Allergy Severe Anaphylaxis Verified 09/16/25 13:49 losartan Allergy rash Verified 09/16/25 13:49 <Anaya Davis PA-C - Last Filed: 10/18/25 09:30> Review of Systems 2 Review of Systems: as reviewed above in HPI <Nahid Bolden MD - Last Filed: 10/18/25 01:11> All systems reviewed & are unremarkable except as noted in HPI and below < Nahid Bolden MD - Last Filed: 10/18/25 01:11> PMFSH Past Medical History Medical History: Medical History Detached retina Head injury Angioedema Deep vein thrombosis (DVT) of calf muscle vein of right lower extremity Nasal septal deformity Pyogenic granuloma Acute stress disorder Strain of adductor muscle, fascia and tendon of right thigh, initial encounter <Anaya Davis PA-C - Last Filed: 10/18/25 09:30> Family History Family History: Family History Grandparent Diabetes mellitus Mother Diabetes mellitus Depression Family history of malignant neoplasm <Anaya Davis PA-C - Last Filed: 10/18/25 09:30> Social History Social History: Social History Social History: Caffeine-teac,coffee Smoking status: Never smoker Alcohol intake: never Substance use: never Substance use type: does not use Lack of Transportation: No Lack of Food: Never True Current Housing: I Have Housing Concerned About Future Housing: No Difficulty Paying Gas/Electric Bills: No Difficulty Paying for Meds: No Currently Unemployed: No Education: High School Diploma/GED Difficulty w/ Childcare or Family Care: No Spiritual care concerns: No <Anaya Davis PA-C - Last Filed: 10/18/25 09:30> Exam 2 Narrative: GENERAL: [Well-appearing, well-nourished, and in no acute distress.] HEAD: [Normocephalic, atraumatic.] EYES: [PERRLA and EOMI.] ENT: Nares clear, no rhinorrhea or epistaxis. Mucous membranes moist. NECK: Supple. CHEST: Clear to auscultation, no respiratory distress. Tenderness to palpation along the ribcage on the right side but no crepitus deformity or obvious bruising /injury. HEART: [Regular rate and rhythm]. No murmur heard. [Normal peripheral pulses.] ABDOMEN: [Soft, nondistended], [nontender], [No rigidity or guarding] EXTREMITIES: Normal range of motion. [No edema.] SKIN: Superficial road rash abrasion to the right upper extremity on the ulnar aspect of the hand but no step-offs or deformities. No range of motion restrictions. No bruising to the chest wall, back, face scalp neck or lower extremity. NEURO: [No focal deficits]. Alert and oriented [x3.] PSYCH: [Normal mood and affect.] <Nahid Bolden MD - Last Filed: 10/18/25 01:11> Course Vital Signs Vital signs: Vital Signs Temperature 97.6 F 10/17/25 16:24 Pulse Rate 70 10/17/25 16:24 Respiratory Rate 16 10/17/25 16:24 Blood Pressure 202/92 H 10/17/25 16:24 Pulse Oximetry 97 10/17/25 16:24 Oxygen Delivery Room Air 10/17/25 16:24 Temperature 99 F 10/17/25 19:34 Pulse Rate 83 10/17/25 21:31 Respiratory Rate 14 10/17/25 21:31 Blood Pressure 159/98 H 10/17/25 21:31 Pulse Oximetry 95 10/17/25 21:31 Oxygen Delivery Nasal Cannula 10/17/25 20:02 Oxygen Flow Rate 2 10/17/25 20:02 <Anaya Davis PA-C - Last Filed: 10/18/25 09:30> Vital Signs Temperature 97.6 F 10/17/25 16:24 Pulse Rate 70 10/17/25 16:24 Respiratory Rate 16 10/17/25 16:24 Blood Pressure 202/92 H 10/17/25 16:24 Pulse Oximetry 97 10/17/25 16:24 Oxygen Delivery Room Air 10/17/25 16:24 Temperature 99 F 10/17/25 19:34 Pulse Rate 83 10/17/25 21:31 Respiratory Rate 14 10/17/25 21:31 Blood Pressure 159/98 H 10/17/25 21:31 Pulse Oximetry 95 10/17/25 21:31 Oxygen Delivery Nasal Cannula 10/17/25 20:02 Oxygen Flow Rate 2 10/17/25 20:02 <Nahid Bolden MD - Last Filed: 10/18/25 01:11> MDM - Fall MDM Narrative Medical decision making narrative: 65 year old male that presents to the ER for a fall. Reports he has had a lot of balance problems and been talking to his PCP about this. Reports he started walking to fast while walking around the house and tripped on his footing falling forward and onto his right side. No head trauma. No blood thinner use. Reports he fell onto his right side. Reports everything on his right side hurts. He did not hit his head or lose consciousness. Clear to auscultation, no respiratory distress. Tenderness to palpation along the ribcage on the right side but no crepitus deformity or obvious bruising /injury. Superficial road rash abrasion to the right upper extremity on the ulnar aspect of the hand but no step-offs or deformities. No range of motion restrictions. No bruising to the chest wall, back, face scalp neck or lower extremity. Patient is hemodynamically stable, hypertension but component of pain driving his already high blood pressure baseline. Came down without any interventions to 171/93. no external evidence of significant injury or trauma. Most likely rib contusions with the physical exam findings. Low suspicion intrathoracic injury bleeding or rib fractures. Low suspicion head injury or neck injury as he did not strike his head and has no headache or neck pain. No neurological deficits or complaints. Given his age and risk factors CT scans of his head neck and abdomen chest pelvis were obtained. He was given Robaxin lidocaine patch and fentanyl for analgesia. Laboratory studies obtained. Patient placed on monitor and storage bin tender. Patient's workup was reassuring. No significant leukocytosis. Hemoglobin 15.2 without any anemia. Normal platelet count. Electrolytes are unremarkable. Normal creatinine. Mildly elevated glucose but not significant not causing any anion gap acidosis. Normal LFTs. Head CT normal, no acute lesions secondary to trauma. Chronic changes noted with no evidence of any acute finding. Cervical spine shows no acute finding secondary to trauma. Degenerative disc disease noted but chronic. CT of the chest abdomen and pelvis with contrast shows no acute findings. No free fluid or free air. Re-evaluated after final feeling significantly improved. Blood pressure improved after pain control. Safe for discharge home at this time with return precautions and multimodal pain medication prescribed. <Nahid Bolden MD - Last Filed: 10/18/25 01:11> Medical Records Attestation: I reviewed the patient's medical records. <Nahid Bolden MD - Last Filed: 10/18/25 01:11> Lab Data Attestation: I reviewed the patient's lab results. <Nahid Bolden MD - Last Filed: 10/18/25 01:11> Result diagrams: 10/17/25 18:07 10/17/25 18:07 <Anaya Davis PA-C - Last Filed: 10/18/25 09:30> Labs: Lab Results 10/17/25 Range/Units 18:07 WBC 10.7 H (4.5-10.0) K/mm3 RBC 5.40 (4.6-6.20) M/mm3 Hgb 15.2 (14.0-18.0) g/dL Hct 45.5 (42.0-52.0) % MCV 84.3 (80-100) fl MCH 28.1 (26-34) pg MCHC 33.4 (32-36) g/dl RDW 13.0 (11.5-14.5) % Plt Count 224 (150-375) k/mm3 MPV 10.0 (7.4-10.4) fl Immature Gran % (Auto) 0.5 (0-0.5) % Neut % (Auto) 73.4 H (45.5-73.1) % Lymph % (Auto) 13.8 L (18.3-44.2) % Schleicher % (Auto) 5.3 (2.6-8.5) % Eos % (Auto) 6.3 H (0-4.4) % Baso % (Auto) 0.7 (0.2-1.2) % Lymph # (Auto) 1.47 (0.9-3.2) K/mm3 Schleicher # (Auto) 0.6 (0.1-0.6) K/mm3 Eos # (Auto) 0.7 H (0-0.3) K/mm3 Baso # (Auto) 0.1 (0.0-0.1) K/mm3 Abs Immat Gran (auto) 0.05 H (0.00-0.031) K/mm3 Absolute Neuts (auto) 7.8 H (1.3-6.7) K/mm3 Absolute Nucleated RBC 0.000 (0.0-0.012) K/mm3 Nucleated RBC % 0.0 (0.0-0.2) % Sodium 135 L (137-145) mmol/L Potassium 4.5 (3.4-5.0) mmol/L Chloride 98 (98-107) mmol/L Carbon Dioxide 28 (22-30) mmol/L Anion Gap 9 (4-12) mmol/L BUN 16 (9-20) mg/dL Creatinine 0.69 L (0.7-1.3) mg/dL Estim Creat Clear Calc Not Reportable Estimated GFR > 60 (59 - ) Glucose 270 H (65-110) mg/dL Calcium 9.6 (8.4-10.2) mg/dL Total Bilirubin 0.9 (0.2-1.3) mg/dL AST 45 (17-59) U/L ALT 43 (6-50) U/L Alkaline Phosphatase 69 (38-126) U/L Total Protein 7.9 (6.3-8.2) g/dL Albumin 4.5 (3.5-5.1) g/dL <Anaya Davis PA-C - Last Filed: 10/18/25 09:30> Lab Results 10/17/25 Range/Units 18:07 WBC 10.7 H (4.5-10.0) K/mm3 RBC 5.40 (4.6-6.20) M/mm3 Hgb 15.2 (14.0-18.0) g/dL Hct 45.5 (42.0-52.0) % MCV 84.3 (80-100) fl MCH 28.1 (26-34) pg MCHC 33.4 (32-36) g/dl RDW 13.0 (11.5-14.5) % Plt Count 224 (150-375) k/mm3 MPV 10.0 (7.4-10.4) fl Immature Gran % (Auto) 0.5 (0-0.5) % Neut % (Auto) 73.4 H (45.5-73.1) % Lymph % (Auto) 13.8 L (18.3-44.2) % Schleicher % (Auto) 5.3 (2.6-8.5) % Eos % (Auto) 6.3 H (0-4.4) % Baso % (Auto) 0.7 (0.2-1.2) % Lymph # (Auto) 1.47 (0.9-3.2) K/mm3 Schleicher # (Auto) 0.6 (0.1-0.6) K/mm3 Eos # (Auto) 0.7 H (0-0.3) K/mm3 Baso # (Auto) 0.1 (0.0-0.1) K/mm3 Abs Immat Gran (auto) 0.05 H (0.00-0.031) K/mm3 Absolute Neuts (auto) 7.8 H (1.3-6.7) K/mm3 Absolute Nucleated RBC 0.000 (0.0-0.012) K/mm3 Nucleated RBC % 0.0 (0.0-0.2) % Sodium 135 L (137-145) mmol/L Potassium 4.5 (3.4-5.0) mmol/L Chloride 98 (98-107) mmol/L Carbon Dioxide 28 (22-30) mmol/L Anion Gap 9 (4-12) mmol/L BUN 16 (9-20) mg/dL Creatinine 0.69 L (0.7-1.3) mg/dL Estim Creat Clear Calc Not Reportable Estimated GFR > 60 (59 - ) Glucose 270 H (65-110) mg/dL Calcium 9.6 (8.4-10.2) mg/dL Total Bilirubin 0.9 (0.2-1.3) mg/dL AST 45 (17-59) U/L ALT 43 (6-50) U/L Alkaline Phosphatase 69 (38-126) U/L Total Protein 7.9 (6.3-8.2) g/dL Albumin 4.5 (3.5-5.1) g/dL <Nahid Bolden MD - Last Filed: 10/18/25 01:11> Imaging Data Attestation: I personally reviewed and interpreted this imaging study as follows: < Nahid Bolden MD - Last Filed: 10/18/25 01:11> My impression: Impressions Head CT 10/17/25 18:59 IMPRESSION: 1. No acute intracranial lesions due to trauma. Chronic changes as described above. If symptoms are significant MRI is indicated. Cervical Spine CT 10/17/25 19:02 IMPRESSION: 1. No acute findings due to trauma. Significant degenerative disc changes at C5- 6 and C6-7 levels. If symptoms are persistent MRI is indicated. Chest/Abdomen/Pelvis CT 10/17/25 19:10 IMPRESSION: 1. No acute findings in the chest, abdomen and pelvis due to trauma. No free fluid in the peritoneal cavity. 2. Other chronic findings are described above. <Nahid Bolden MD - Last Filed: 10/18/25 01:11> Discharge Plan Discharge Clinical Impression: Ground-level fall, Musculoskeletal pain <Anaya Davis PA-C - Last Filed: 10/18/25 09:30> Patient Disposition: Home <GANESH Day Last Filed: 10/18/25 09:30> Condition: Stable <Anaya Davis PA-C - Last Filed: 10/18/25 09:30> Instructions: Antibiotic Form, Fall Prevention for Older Adults (ED) <Anaya Davis PA-C - Last Filed: 10/18/25 09:30> Additional Instructions: Laboratory studies and imaging were unrevealing. No traumatic injuries. Here blood sugar is elevated which can definitely be an issue and needs to be addressed by your primary care provider with better control. Return with any emergencies. No sustained injuries from the fall except from some musculoskeletal contusions which are not serious. We will send you home with pain control medications. Follow-up with your regular doctor. Return with any emergent concerns. <Anaya Davis PA-C - Last Filed: 10/18/25 09:30> Patient Language: Zambian <Anaya Davis PA-C - Last Filed: 10/18/25 09:30> Prescriptions: New ibuprofen 800 mg tablet 800 mg PO TID PRN (Reason: pain) Qty: 30 0RF acetaminophen [Tylenol Extra Strength] 500 mg tablet 1,000 mg PO TID PRN (Reason: pain) Qty: 30 0RF methocarbamol 750 mg tablet 750 mg PO TID PRN (Reason: pain) Qty: 20 0RF lidocaine 5 % adhesive patch,medicated 1 patch topical DAILY Qty: 15 0RF Rx Instructions: leave on most painful area for up to 12 hrs No Action aspirin [Adult Aspirin Regimen] 81 mg tablet,delayed release (DR/EC) 81 mg PO DAILY dapagliflozin propanediol [Farxiga] 10 mg tablet 10 mg PO DAILY Qty: 90 3RF Patient Comments: not taking latanoprost 0.005 % drops 1 drp EACH EYE QPM Ozempic 0.25 mg or 0.5 mg (2 mg/3 mL) pen injector 0.25 mg subcut WEEKLY Rx Instructions: for 4 weeks alprazolam 0.25 mg tablet 0.25 mg PO TID PRN (Reason: anxiety) Qty: 60 0RF (DME) OneTouch Ultra Blue Test Strip Strip See Rx Instructions .ROUTE .MEDSUPPLY Qty: 100 3RF Rx Instructions: As directed bid and prn (DME) Aerochamber Plus Flow-Vu Spacer See Rx Instructions .Route Qty: 10 0RF Rx Instructions: As directed alprazolam [Xanax] 0.5 mg tablet 0.5 mg PO TID PRN (Reason: anxiety) Qty: 90 1RF albuterol sulfate [Ventolin HFA] 90 mcg/actuation HFA aerosol inhaler 1 puff INHALATION Q4H PRN (Reason: shortness of breath or wheezing) Qty: 8.5 3RF levothyroxine [Synthroid] 200 mcg tablet 200 mcg PO DAILY Qty: 90 1RF sertraline 100 mg tablet See Rx Instructions .ROUTE .COMPLEX Qty: 180 1RF Dose Instruction: TAKE ONE TABLET BY MOUTH TWICE A DAY Rx Instructions: TAKE ONE TABLET BY MOUTH TWICE A DAY bupropion HCl 150 mg tablet extended release 24 hr 150 mg PO QAM Qty: 90 1RF Rx Instructions: to be taken with 300mg for total of 450mg total q day bupropion HCl 300 mg tablet extended release 24 hr See Rx Instructions .ROUTE .COMPLEX Qty: 90 1RF Dose Instruction: TAKE ONE TABLET BY MOUTH ONCE DAILY Rx Instructions: TAKE ONE TABLET BY MOUTH ONCE DAILY atorvastatin 10 mg tablet See Rx Instructions .ROUTE .COMPLEX Qty: 90 1RF Dose Instruction: TAKE ONE TABLET BY MOUTH ONCE DAILY Rx Instructions: TAKE ONE TABLET BY MOUTH ONCE DAILY (DME) FreeStyle Gerardo 14 Day Sensor Kit See Rx Instructions .ROUTE .MEDSUPPLY Qty: 6 3RF Rx Instructions: As directed cyclobenzaprine 10 mg tablet 10 mg PO TID PRN (Reason: muscle spasm) Qty: 30 2RF trazodone 50 mg tablet 50 mg PO DAILY Qty: 90 1RF metformin 500 mg tablet extended release 24 hr See Rx Instructions .ROUTE .COMPLEX Qty: 360 1RF Dose Instruction: Take 2 Tablets (1,000 mg) by mouth 2 times daily. Rx Instructions: Take 2 Tablets (1,000 mg) by mouth 2 times daily. glyburide 5 mg tablet See Rx Instructions .ROUTE .COMPLEX Qty: 180 1RF Dose Instruction: Take 1 Tablet (5 mg) by mouth 2 times daily. Rx Instructions: Take 1 Tablet (5 mg) by mouth 2 times daily. pen needle, diabetic [Unifine Pentips Plus] 32 gauge x 5/32 needle See Rx Instructions .ROUTE .COMPLEX Qty: 100 1RF Dose Instruction: Use with Insulin Pen for injections. Rx Instructions: Use with Insulin Pen for injections. insulin glargine [Lantus Solostar U-100 Insulin] 100 unit/mL (3 mL) insulin pen 14 unit subcut BID Qty: 30 1RF clonazepam [Klonopin] 1 mg tablet 1 mg PO BID Qty: 180 1RF <Anaya Davis PA-C - Last Filed: 10/18/25 09:30> Follow-up/Referrals: Cecilio Anaya MD [Primary Care Provider, Family Practice] <Anaya Davis PA-C - Last Filed: 10/18/25 09:30> Time of Disposition: 21:38 <Anaya Davis PA-C - Last Filed: 10/18/25 09:30> 21:38 <Nahid Bolden MD - Last Filed: 10/18/25 01:11>
[2025-10-17 18:16] LABS: Hematocrit 45.5 % (42.0-52.0); Hemoglobin 15.2 g/dL (14.0-18.0); Immature Granulocyte Percent A 0.5 % (0-0.5); Lymphocytes Absolute Auto 1.47 K/mm3 (0.9-3.2); Mean Corpuscular HGB Conc 33.4 g/dl (32-36); Mean Corpuscular Hemoglobin 28.1 pg (26-34); Mean Corpuscular Volume 84.3 fl (80-100); Nucleated Red Blood Cells Absolute Auto 0.000 K/mm3 (0.0-0.012); Nucleated Red Blood Cells Perc 0.0 % (0.0-0.2); Platelet Count Result 224 k/mm3 (150-375); Red Blood Count 5.40 M/mm3 (4.6-6.20); White Blood Count 10.7 K/mm3 (4.5-10.0)
--- OUTSIDE RECORDS SUMMARY | 2025-10-17 18:24 | XMS_ITS | Clinical Summary ---
Author Organization [address] Address [address] [place] [address] Care Team Providers Care Office Machine Inspector Name Role Phone Cecilio Anaya MD Primary Care Provider [phone] [phone] Allergies Active Allergy Reactions Criticality Noted Date [...] at bedtime. 90 tablet 3 4 Active ALPRAZolam (XANAX) 0.25 mg tablet Take 1 tablet (0.25 mg total) by mouth nightly as needed for anxiety Active Active Problems Problem Noted Date Diagnosed [...] problems maintaining wakefulness throughout the day. His [place] sleepiness score is a 1. Assessment & Plan (05/16/2017 3:37 PM CDT): He is compliant with his APAP therapy. His [place] sleepiness score is 0. He has no [...] from others; identify saboteurs; non-food rewards, etc). Encounters Date Type Department Care Team Description 09/28/2025 Telephone [facility] [address] [place] [address] M[place] Hernandez [phone] Seble Gee NP from Last 3 Months Surgical History Surgery Date Site/Laterality Comments FACIAL SURGERY facial surgery OTHER SURGICAL HISTORY thoracic surgery with removal of foreign body OTHER SURGICAL HISTORY Right Eye surgery-partial detach retina Medical History Medical History Date Comments Type 2 diabetes mellitus Diabete s type 2; Comments: AGR 08/02/2015 - Anxiety disorder Anxiety Hypertension Hypertension Depression Depression Adiposity Obesity Hyperthyroidism Hyperthyroidism; Comments: AGR 08/02/2015 - Asthma Asthma Social History Tobacco [...] on file 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
--- OUTSIDE RECORDS SUMMARY | 2025-10-17 18:24 | XMS_ITS | Clinical Summary ---
Author Organization [facility] Address [address] Aguilar: Epic Prelude ADT MARY ALMARAZ [address] Care Team Providers Care Copier Operator Name Role Phone Unavailable Primary Care Provider Unavailabl e Allergies Active Allergy Reactions Criticality Noted Date Comments Lisinopril Angioedema High 07/08/2023 Medications glyBURIDE (DIABETA) 2.5 mg tablet Take 1 Tablet (2.5 mg) by mouth 2 times daily. 180 Tablet 3 11/23/20 22 12:41 PM ASPHALT BLENDER 022 Active sAXagliptin (Onglyza) 5 mg tablet TAKE ONE TABLET BY MOUTH ONCE DAILY 90 Tablet 1 11/11/20 22 5:08 PM ASPHALT BLENDER 022 Active lisinopriL (PRINIVIL) 10 mg tablet Take 1 Tablet (10 mg) by mouth daily. 90 Tablet 3 06/15/20 23 3:38 PM CDT 023 Active semaglutide (Ozempic) 0.25 mg or 0.5 mg(2 mg/1.5 mL) Pen Injector Inject 0.5 mg by subcutaneous injection every 7 days at dinner. 4.5 mL 2 03/16/20 23 3:01 PM CDT 023 Active flash glucose sensor (FreeStyle Gerardo 14 Day Sensor) Kit Change sensor every 14 days 6 Kit 3 023 Active inhalational spacing device (Aerochamber Max with Flow-VU) Spacer USE DIRECTED WITH INHALER 10 Each 01/30/20 4:23 PM ASPHALT BLENDER 023 Active omeprazole (PriLOSEC) 20 mg Capsule, Delayed Release(E.C.) Take 1 Capsule (20 mg) by mouth once daily 30 minutes to 1 hour before a meal 90 Capsule 3 10/21/20 23 2:13 PM ASPHALT BLENDER 023 Active triamterene-hy droCHLOROthiaz christopher (MAXZIDE 25) 37.5-25 mg tablet Take 1 Tablet by mouth daily in the morning. 90 Tablet 1 10/21/20 23 2:13 PM ASPHALT BLENDER 023 Active losartan (COZAAR) 25 mg tablet Take 1 Tablet (25 mg) by mouth daily. 30 Tablet 07/08/20 23 12:46 PM CDT 023 Active diphenhydrAMIN E12.5 mg/5 mL-viscous lidocaine-Maal ox 1:1:1 (MAGIC MOUTHWASH) oral suspension compound Swish and spit 5 mL by mouth every 2 hours as needed for mouth sores; diphenhydramine 12.5 mg/5 mL oral elixir 40 mL; Lidocaine Viscous 2 % mucosal solution 40 mL; Maalox 200 mg-200 mg-20 mg/5 mL oral suspension 40 mL; Per 120 mL 120 mL 1 023 Active triamcinolone acetonide (KENALOG) 0.1 % Cream APPLY TO THE AFFECTED AREA TWICE DAILY. 30 Gram 08/01/20 23 5:11 PM CDT 023 Active dorzolamide (TRUSOPT) 2 % solution ADMINISTER 1 DROP IN BOTH EYES TWICE DAILY 10 mL 1 08/27/20 23 5:23 PM CDT 023 Active brimonidine-ti moloL (Combigan) 0.2-0.5 % solution Administer 1 Drop in both eyes 3 times daily. 5 mL 3 023 Active brimonidine-ti moloL (Combigan) 0.2-0.5 % solution Administer 1 Drop in both eyes 2 times daily. 5 mL 6 10/02/20 23 5:48 PM ASPHALT BLENDER 023 Active tobramycin-dex AMETHasone (TOBRADEX) 0.3-0.1 % suspension Administer 1 Drop in left eye 4 times daily. Starting after surgery. 5 mL 10/09/20 23 6:24 PM ASPHALT BLENDER 023 Active prednisoLONE acetate (Pred Forte) 1 % suspension Administer 1 drop in left eye twice daily 10 mL 4 12/03/19 24 5:03 PM ASPHALT BLENDER 024 Active traMADoL (ULTRAM) 50 mg tablet Take 1 Tablet (50 mg) by mouth every 4 hours as needed for pain. 30 Tablet 1 12/05/19 24 5:06 PM ASPHALT BLENDER 024 Active ALPRAZolam (XANAX) 0.25 mg tablet Take 1 Tablet (0.25 mg) by mouth 3 times daily as needed for anxiety 60 Tablet 01/01/20 24 6:33 PM ASPHALT BLENDER 024 Active semaglutide (Ozempic) 1 mg/dose (4 mg/3 mL) Pen Injector Inject 1 mg (0.75 mL) subcutaneously once weekly. 9 mL 3 024 Active traZODone (DESYREL) 50 mg tablet Take 1 tablet nightly at bedtime. 90 Tablet 3 024 Active semaglutide (Ozempic) 1 mg/dose (4 mg/3 mL) Pen Injector Inject 1 mg by subcutaneous injection every 7 days. 9 mL 3 06/01/20 24 12:27 PM CDT 024 Active ALPRAZolam (XANAX) 0.5 mg tablet Take 1 Tablet (0.5 mg) by mouth 3 times daily as needed for anxiety. 90 Tablet 1 07/12/20 24 2:44 PM CDT 024 Active Insulin [place], Disposable, (Pen Needle) 32 gauge x 5/32 Needle Use with insulin as directed. 100 Each 1 07/23/20 24 4:53 PM CDT 024 Active latanoprost (XALATAN) 0.005 % solution Instill one drop into each eye once at bedtime. 2.5 mL 1 07/07/20 24 2:14 PM CDT 024 Active omeprazole (PriLOSEC) 20 mg Capsule, Delayed Release(E.C.) TAKE ONE CAPSULE BY MOUTH ONCE DAILY 30 MINUTES TO 1 HOUR BEFORE A MEAL. 90 Capsule 1 07/17/20 24 4:49 PM CDT 024 Active albuterol sulfate HFA 90 mcg/actuation aerosol inhaler Administer 1 puff by mouth every 4 hours as needed for shortness of breath or wheezing 8.5 Gram 3 08/31/20 24 4:45 PM CDT 024 Active pEG 400-propylene glycol (Systane, PF,) 0.4-0.3 % solution Instill one drop into each eye as needed through out the day as directed 30 Each 2 Active buPROPion HCL (WELLBUTRIN XL) 150 mg Extended Release 24 hour tablet Take one tablet (150 mg) orally every morning; to be taken with 300mg for total of 450mg total q day 90 Tablet 1 01/16/20 25 11:54 AM ASPHALT BLENDER 024 Active latanoprost (XALATAN) 0.005 % solution Instill one drop in each eye once at bedtime. 2.5 mL 11 12/02/19 25 8:11 AM ASPHALT BLENDER 025 Active dapagliflozin propanediol (FARXIGA) 10 mg Tablet Take 1 Tablet (10 mg) by mouth daily. 90 Tablet 3 025 Active latanoprost (XALATAN) 0.005 % solution Administer 1 Drop in both eyes daily at bedtime. 2.5 mL 12 05/03/20 25 1:04 PM CDT 025 Active latanoprost (XALATAN) 0.005 % solution Instill one drop each eye once at bedtime 2.5 mL 12 09/09/20 11:54 AM CDT 025 Active levothyroxine 200 mcg tablet Take 1 Tablet (200 mcg) by mouth daily. 90 Tablet 1 06/09/20 7:39 PM CDT 025 Active sertraline (ZOLOFT) 100 mg tablet Take 1 Tablet (100 mg) by mouth 2 times daily. 180 Tablet 1 08/04/20 25 12:25 PM CDT 025 Active buPROPion HCL (WELLBUTRIN XL) 150 mg Extended Release 24 hour tablet Take 1 Tablet (150 mg) by mouth daily in the morning WITH 300 MG DOSE TO EQUAL 450 MG TOTAL DAILY DOSE. 90 Tablet 1 08/04/20 25 12:25 PM CDT 025 Active buPROPion HCL (WELLBUTRIN XL) 300 mg Extended Release 24 hour tablet TAKE ONE TABLET BY MOUTH ONCE DAILY 90 Tablet 1 08/30/20 3:28 PM CDT 025 Active atorvastatin (LIPITOR) 10 mg tablet Take 1 Tablet (10 mg) by mouth daily. 90 Tablet 1 09/23/20 25 6:14 PM CDT 025 Active semaglutide (Ozempic) 1 mg/dose (4 mg/3 mL) Pen Injector Inject 1 mg by subcutaneous injection every 7 days. 3 mL 06/09/20 25 7:39 PM CDT 025 Active flash glucose sensor (FreeStyle Gerardo 14 Day Sensor) Kit Apply one sensor As directed every 14 days 6 Each 3 025 Active cyclobenzaprin e (FLEXERIL) 10 mg tablet Take 1 Tablet (10 mg) by mouth 3 times daily as needed FOR MUSCLE SPASMS. 30 Tablet 2 06/29/20 5:22 PM CDT 025 Active traZODone (DESYREL) 50 mg tablet Take 1 Tablet (50 mg) by mouth daily. 90 Tablet 1 10/11/20 25 12:50 PM ASPHALT BLENDER 025 Active metFORMIN (GLUCOPHAGE XR) 500 mg Extended Release 24 hour tablet Take 2 Tablets (1,000 mg) by mouth 2 times daily. 360 Tablet 1 07/22/20 6:41 PM CDT 025 Active glyBURIDE (DIABETA) 5 mg tablet Take 1 Tablet (5 mg) by mouth 2 times daily. 180 Tablet 1 08/04/20 12:25 PM CDT 025 Active Insulin [place], Disposable, (Unifine Pentips Plus) 32 gauge x 5/32 Needle Use with Insulin Pen for injections. 100 Each 1 09/09/20 25 11:54 AM CDT 025 Active insulin glargine (LANTUS) 100 unit/mL pen syringe Inject 14 Units by subcutaneous injection 2 times daily. 30 mL 1 09/09/20 25 11:54 AM CDT 025 Active ALPRAZolam (XANAX) 0.25 mg tablet Take 1 Tablet (0.25 mg) by mouth 3 times daily as needed for anxiety. 60 Tablet 09/23/20 25 6:14 PM CDT 025 Active clonazePAM (KlonoPIN) 1 mg tablet Take 1 Tablet (1 mg) by mouth 2 times daily. 180 Tablet 1 10/05/20 25 2:35 PM ASPHALT BLENDER 025 Active amoxicillin (AMOXIL) 875 mg tablet Take 1 Tablet (875 mg) by mouth 2 times daily for 14 days. 28 Tablet 10/11/20 25 12:50 PM ASPHALT BLENDER 025 2024 Active clonazePAM (KlonoPIN) 1 mg tablet Take 1 Tablet (1 mg) by mouth 2 times daily. 180 Tablet 1 08/30/20 25 3:28 PM CDT 025 2024 Discontinued Social History Tobacco Use Types Packs/Day Years [...] (1 of 1 - PCV) 05/29/20 10 RSV VACCINE (60+ or ) (1 - Risk 50-74 years 1-dose series) 2010 ZOSTER VACCINE (1 of 2) 2010 INFLUENZA VACCINE (#1) 2025 Insurance RX [employer] Commercial RX ZAVALETA PLANS (INTERNAL) [employer] Internal Plans RX [employer] Medicare Part D
--- OUTSIDE RECORDS SUMMARY | 2025-10-17 18:24 | XMS_ITS | Clinical Summary ---
Author Organization [facility] Address [address] [place] [address] Care Team Providers Care Signals Intelligence Analysis Manager Name Role Phone Unavailable Primary Care Provider [...] of 2) 2010 COVID-19 Vaccine ( - 2024-2 6 season) 2025 Influenza Adult (#1) 2025 RSV Immunization or 60+ Years (1 - 1-dose 75+ series) 2035 Hepatitis A Vaccines Aged Out No long er eligible based on patient's age to complete this topic Meningococcal B Vaccine Aged Out No l onger eligible based on patient's age to complete this topic Meningococcal Vaccine Aged Out No chuck ml eligible based on patient's age to complete this topic RSV Immunizations Under 20 Months Aged Out No longer eligible based on patient's age to complete this topic
--- OUTSIDE RECORDS SUMMARY | 2025-10-17 18:24 | XMS_ITS | Clinical Summary ---
Author Organization [facility] [employer] Address [address] [place] [address] Care Team Providers Care Supervisor Sulfuric Acid Plant Name Role Phone Cecilio Anaya MD Primary Care Provider [phone]- [phone] Source Comments [facility] [employer],non-owned Affiliates and Associated Physician Practices is amultiple site organization consisting of ambulatory clinics and hospital sitesin [place], [place], [place] and [place]. This disclosure is being madepursuant to the Care Everywhere program and may not contain all information available regarding this patient. Last updated 18.[facility] [employer] Allergies No known active allergies Social History [...] 2010 ZOSTER VACCINE (1 of 2) 2010 DEPRESSION SCREENING 11/24/2024 COVID-19 VACCINE (1 - 2024-2 6 season) 2025 INFLUENZA VACCINE (#1) 2025 Respiratory Syncytial Virus [...] Insurance PAYOR [address] [place], [place] [id number] [facility] [employer] Mobile Care Teams Supervisor Sulfuric Acid Plant Relationship Specialty Start Date End Date Cecilio Anaya MD [address] [place] [phone] PCP - General Family Medicine 08/07/15
[2025-10-17 18:26] LABS: Alanine Aminotransferase 43 U/L (6-50); Albumin Level 4.5 g/dL (3.5-5.1); Alkaline Phosphatase 69 U/L (38-126); Anion Gap 9 mmol/L (4-12); Aspartate Amino Transferase 45 U/L (17-59); Bilirubin,Total 0.9 mg/dL (0.2-1.3); Blood Urea Nitrogen 16 mg/dL (9-20); Calcium 9.6 mg/dL (8.4-10.2); Carbon Dioxide 28 mmol/L (22-30); Chloride 98 mmol/L (98-107); Estimated Glomerular Filt Rate > 60; Glucose 270 mg/dL (65-110); Potassium 4.5 mmol/L (3.4-5.0); Sodium 135 mmol/L (137-145); Total Protein 7.9 g/dL (6.3-8.2)
[2025-10-17] MEDS: fentaNYL CITRATE INJ (*CRX) 100 MCG/2 ML VIAL 150 MCG IV PUSH (19:43)
[2025-10-17] MEDS: LIDOCAINE 5% PATCH 1 PATCH TRANSDERM (19:51)
[2025-10-17] MEDS: SODIUM CHLORIDE 0.9% IV 1,000 ML 999 ML IV CONT (20:02)
--- OUTSIDE RECORDS SUMMARY | 2025-10-17 20:03 | XMS_ITS | Clinical Summary ---
Author Organization [facility] Address [address] [place] [address] Care Team Providers Care Rehab Trainer Name Role Phone Unavailable Primary Care Provider [...]
--- OUTSIDE RECORDS SUMMARY | 2025-10-17 20:04 | XMS_ITS | Clinical Summary ---
Author Organization [facility] [employer] Address [address] [facility] [place] [address] Care Team Providers Care Cutting Table Operator Name Role Phone Cecilio Anaya MD Primary Care Provider +1- [phone] Source Comments [facility] [employer],non-owned Affiliates and Associated Physician Practices is amultiple site organization consisting of ambulatory clinics and hospital sitesin [place], [place], [place] and [place]. This disclosure is being madepursuant to the Care Everywhere program and may not contain all information available regarding this patient. Last updated 18.[facility] [employer] Allergies No known active allergies Social History [...] Insurance PAYOR [address] [place], [place] [address] [facility] [employer] Care Teams Cutting Table Operator Relationship Specialty Start Date End Date Cecilio Anaya MD [address] [place] [phone] PCP - General Family Medicine 08/07/15
--- OUTSIDE RECORDS SUMMARY | 2025-10-17 20:04 | XMS_ITS | Clinical Summary ---
Author Organization [address] Address [address] [place] [address] Care Team Providers Care Budget Assistant Name Role Phone Cecilio Anaya MD Primary Care Provider +1 -[phone] Allergies Active Allergy Reactions Criticality Noted Date [...] problems maintaining wakefulness throughout the day. His [place] sleepiness score is a 1. Assessment & Plan (05/16/2017 3:37 PM CDT): He is compliant with his APAP therapy. His [place] sleepiness score is 0. 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
--- OUTSIDE RECORDS SUMMARY | 2025-10-17 20:04 | XMS_ITS | Clinical Summary ---
Author Organization [facility] Address [address] Aguilar: Epic Prelude ADT MARY ALMARAZ [address] Care Team Providers Care School Occupational Therapist Name Role Phone Unavailable Primary Care Provider Unavailabl e Allergies Active Allergy Reactions Criticality Noted Date Comments Lisinopril Angioedema High 07/08/2023 Medications glyBURIDE (DIABETA) 2.5 mg tablet Take 1 Tablet (2.5 mg) by mouth 2 times daily. 180 Tablet 3 11/23/20 22 12:41 PM MOTORBOAT MECHANIC HELPER 022 Active sAXagliptin (Onglyza) 5 mg tablet TAKE ONE TABLET BY MOUTH ONCE DAILY 90 Tablet 1 11/11/20 22 5:08 PM MOTORBOAT MECHANIC HELPER 022 Active lisinopriL (PRINIVIL) 10 mg tablet [...] WITH INHALER 10 Each 01/30/20 4:23 PM MOTORBOAT MECHANIC HELPER 023 Active omeprazole (PriLOSEC) 20 mg Capsule, Delayed Release(E.C.) Take 1 Capsule (20 mg) by mouth once daily 30 minutes to 1 hour before a meal 90 Capsule 3 10/21/20 23 2:13 PM MOTORBOAT MECHANIC HELPER 023 Active triamterene-hy droCHLOROthiaz christopher (MAXZIDE 25) 37.5-25 mg tablet Take 1 Tablet by mouth daily in the morning. 90 Tablet 1 10/21/20 23 2:13 PM MOTORBOAT MECHANIC HELPER 023 Active losartan (COZAAR) 25 mg tablet [...] 5 mL 6 10/02/20 23 5:48 PM MOTORBOAT MECHANIC HELPER 023 Active tobramycin-dex AMETHasone (TOBRADEX) 0.3-0.1 % suspension Administer 1 Drop in left eye 4 times daily. Starting after surgery. 5 mL 10/09/20 23 6:24 PM MOTORBOAT MECHANIC HELPER 023 Active prednisoLONE acetate (Pred Forte) 1 % suspension Administer 1 drop in left eye twice daily 10 mL 4 12/03/19 24 5:03 PM MOTORBOAT MECHANIC HELPER 024 Active traMADoL (ULTRAM) 50 mg tablet Take 1 Tablet (50 mg) by mouth every 4 hours as needed for pain. 30 Tablet 1 12/05/19 24 5:06 PM MOTORBOAT MECHANIC HELPER 024 Active ALPRAZolam (XANAX) 0.25 mg tablet Take 1 Tablet (0.25 mg) by mouth 3 times daily as needed for anxiety 60 Tablet 01/01/20 24 6:33 PM MOTORBOAT MECHANIC HELPER 024 Active semaglutide (Ozempic) 1 mg/dose (4 [...] 24 2:44 PM CDT 024 Active Insulin [place], Disposable, (Pen Needle) 32 gauge x 5/32 [...] 90 Tablet 1 01/16/20 25 11:54 AM MOTORBOAT MECHANIC HELPER 024 Active latanoprost (XALATAN) 0.005 % solution Instill one drop in each eye once at bedtime. 2.5 mL 11 12/02/19 25 8:11 AM MOTORBOAT MECHANIC HELPER 025 Active dapagliflozin propanediol (FARXIGA) 10 mg [...] 90 Tablet 1 10/11/20 25 12:50 PM MOTORBOAT MECHANIC HELPER 025 Active metFORMIN (GLUCOPHAGE XR) 500 mg Extended Release 24 hour tablet Take 2 Tablets (1,000 mg) by mouth 2 times daily. 360 Tablet 1 07/22/20 6:41 PM CDT 025 Active glyBURIDE (DIABETA) 5 mg tablet Take 1 Tablet (5 mg) by mouth 2 times daily. 180 Tablet 1 08/04/20 12:25 PM CDT 025 Active Insulin [place], Disposable, (Unifine Pentips Plus) 32 gauge x [...] 180 Tablet 1 10/05/20 25 2:35 PM MOTORBOAT MECHANIC HELPER 025 Active amoxicillin (AMOXIL) 875 mg tablet Take 1 Tablet (875 mg) by mouth 2 times daily for 14 days. 28 Tablet 10/11/20 25 12:50 PM MOTORBOAT MECHANIC HELPER 025 2024 Active clonazePAM (KlonoPIN) 1 mg [...] RX [employer] Commercial RX ZAVALETA PLANS (INTERNAL) [employer] Internal Plans RX [employer] Medicare Part D
== END 2025-10-17 22:10 | disposition home or self-care (01) ==
PROVIDERS: Physician Assistant; Emergency Provider Student in an Organized Health Care Education/Training Program; PCP Family Medicine
DX: R07.89 Other chest pain (principal); S60.511A Abrasion of right hand, initial encounter; R26.89 Other abnormalities of gait and mobility; Z86.718 Personal history of other venous thrombosis and embolism; Z79.82 Long term (current) use of aspirin; W01.0XXA Fall on same level from slipping, tripping and stumbling without subsequent striking against object, initial encounter
CPT/HCPCS: 36415; 70450; 71260; 72125; 74177; 80053; 85025; 96361; 96374; 99284; A9270; J3010; J7030; Q9967

== ENCOUNTER 2025-10-20 09:06 | Observation (INO) | payer MEDICARE, SELFPAY ==
[2025-10-20] VITALS (28 sets, daily range): BP systolic 156–207; BP diastolic 81–145; PULSE 72–87; RESP 16–29; TEMP 36.5–36.6; O2SAT 92–99; BMI 37.3
--- NOTE | ~2025-10-20 | XR_ITS ---
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 Findings: Nondisplaced fractures of the distal eighth and ninth ribs. No significant degenerative changes. Soft tissues unremarkable. Impression: Fractures detailed above Reviewed, dictated and finalized at location P. H WORKER Impression: Fractures detailed above
--- NOTE | ~2025-10-20 | CT_ITS ---
CT HEAD NON-CONTRAST Clinical History: generalized weakness, multiple falls, no obvious bruising, Comparison: CT brain 10/17/2025 Technique: Unenhanced axial images skull base to vertex Coronal, sagittal reformats CT images acquired with automatic exposure control for dose reduction DLP: 605 mGy-cm Findings: Sulci, ventricles: Unremarkable. No intracerebral hemorrhage. Tiny hyperdensity adjacent to frontal horn of left lateral ventricle, probably DVA or small vascular abnormality. No evidence acute territorial infarct. No mass effect, midline shift. Bony calvarium intact. Visualized paranasal sinuses: Clear. Mastoid air cells: Clear. IMPRESSION: 1. No acute intracranial findings. Reviewed, dictated and finalized at location R. TRY GRADER
--- NOTE | 2025-10-20 09:24 | ECG_ITS ---
Test Date: 2025-10-20 09:49:10 Measurements Intervals [place] Rate: 80 P: 43 MN: 174 QRS: -25 QRSD: 117 T: 24 QT: 373 QTc: 430 Interpretive Statements SINUS RHYTHM BORDERLINE LEFT AXIS DEVIATION [QRS AXIS < -20] INCOMPLETE RIGHT BUNDLE BRANCH BLOCK [90+ ms QRS DURATION, TERMINAL R IN V1/V2, 40+ ms S IN I/aVL/V4/V5/V6] Abnormal ECG No previous ECG available for comparison Electronically Signed On 10-20-2025 11:07:57 FILTER PULP WASHER by Mike Arreguin M.D.
--- OUTSIDE RECORDS SUMMARY | 2025-10-20 09:32 | XMS_ITS | Clinical Summary ---
Author Organization [facility] [employer] Address [address] [facility] [place] [address] Care Team Providers Care Tanning Consultant Name Role Phone Cecilio Anaya MD Primary Care Provider +1- [phone] Source Comments [facility] [employer],non-owned Affiliates and Associated Physician Practices is amultiple site organization consisting of ambulatory clinics and hospital sitesin [place], [place], [place] and [place]. This disclosure is being madepursuant to the Care Everywhere program and may not contain all information available regarding this patient. Last updated 18.[facility] [employer] Allergies No known active allergies Social History [...] Insurance PAYOR GENERIC Dr [place], [place] [id number] [facility] [employer] Care Teams Tanning Consultant Relationship Specialty Start Date End Date Cecilio Anaya MD [address] [place] [phone] PCP - General Family Medicine 08/07/15
--- OUTSIDE RECORDS SUMMARY | 2025-10-20 09:32 | XMS_ITS | Clinical Summary ---
Author Organization [address] Address [address] [place] [address] Care Team Providers Care Career Center Advisor Name Role Phone Cecilio Anaya MD Primary Care Provider [phone] Allergies Active Allergy Reactions Criticality Noted Date [...] problems maintaining wakefulness throughout the day. His [place] sleepiness score is a 1. Assessment & Plan (05/16/2017 3:37 PM CDT): He is compliant with his APAP therapy. His [place] sleepiness score is 0. 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
--- OUTSIDE RECORDS SUMMARY | 2025-10-20 09:32 | XMS_ITS | Clinical Summary ---
Author Organization [facility] Address [address] [facility] [address] Aguilar: Epic Prelude ADT MARY ALMARAZ [address] Care Team Providers Care Rn Navigator Name Role Phone Unavailable Primary Care Provider Unavailabl e Allergies Active Allergy Reactions Criticality Noted Date Comments Lisinopril Angioedema High 07/08/2023 Medications glyBURIDE (DIABETA) 2.5 mg tablet Take 1 Tablet (2.5 mg) by mouth 2 times daily. 180 Tablet 3 11/23/20 22 12:41 PM OPERATIONS AND MAINTENANCE TECHNICIAN 022 Active sAXagliptin (Onglyza) 5 mg tablet TAKE ONE TABLET BY MOUTH ONCE DAILY 90 Tablet 1 11/11/20 22 5:08 PM OPERATIONS AND MAINTENANCE TECHNICIAN 022 Active lisinopriL (PRINIVIL) 10 mg tablet [...] WITH INHALER 10 Each 01/30/20 4:23 PM OPERATIONS AND MAINTENANCE TECHNICIAN 023 Active omeprazole (PriLOSEC) 20 mg Capsule, Delayed Release(E.C.) Take 1 Capsule (20 mg) by mouth once daily 30 minutes to 1 hour before a meal 90 Capsule 3 10/21/20 23 2:13 PM OPERATIONS AND MAINTENANCE TECHNICIAN 023 Active triamterene-hy droCHLOROthiaz christopher (MAXZIDE 25) 37.5-25 mg tablet Take 1 Tablet by mouth daily in the morning. 90 Tablet 1 10/21/20 23 2:13 PM OPERATIONS AND MAINTENANCE TECHNICIAN 023 Active losartan (COZAAR) 25 mg tablet [...] 5 mL 6 10/02/20 23 5:48 PM OPERATIONS AND MAINTENANCE TECHNICIAN 023 Active tobramycin-dex AMETHasone (TOBRADEX) 0.3-0.1 % suspension Administer 1 Drop in left eye 4 times daily. Starting after surgery. 5 mL 10/09/20 23 6:24 PM OPERATIONS AND MAINTENANCE TECHNICIAN 023 Active prednisoLONE acetate (Pred Forte) 1 % suspension Administer 1 drop in left eye twice daily 10 mL 4 12/03/19 24 5:03 PM OPERATIONS AND MAINTENANCE TECHNICIAN 024 Active traMADoL (ULTRAM) 50 mg tablet Take 1 Tablet (50 mg) by mouth every 4 hours as needed for pain. 30 Tablet 1 12/05/19 24 5:06 PM OPERATIONS AND MAINTENANCE TECHNICIAN 024 Active ALPRAZolam (XANAX) 0.25 mg tablet Take 1 Tablet (0.25 mg) by mouth 3 times daily as needed for anxiety 60 Tablet 01/01/20 24 6:33 PM OPERATIONS AND MAINTENANCE TECHNICIAN 024 Active semaglutide (Ozempic) 1 mg/dose (4 [...] 24 2:44 PM CDT 024 Active Insulin Ke[place], Disposable, (Pen Needle) 32 gauge x 5/32 [...] 90 Tablet 1 01/16/20 25 11:54 AM OPERATIONS AND MAINTENANCE TECHNICIAN 024 Active latanoprost (XALATAN) 0.005 % solution Instill one drop in each eye once at bedtime. 2.5 mL 11 12/02/19 25 8:11 AM OPERATIONS AND MAINTENANCE TECHNICIAN 025 Active dapagliflozin propanediol (FARXIGA) 10 mg [...] 90 Tablet 1 10/11/20 25 12:50 PM OPERATIONS AND MAINTENANCE TECHNICIAN 025 Active metFORMIN (GLUCOPHAGE XR) 500 mg Extended Release 24 hour tablet Take 2 Tablets (1,000 mg) by mouth 2 times daily. 360 Tablet 1 07/22/20 6:41 PM CDT 025 Active glyBURIDE (DIABETA) 5 mg tablet Take 1 Tablet (5 mg) by mouth 2 times daily. 180 Tablet 1 08/04/20 12:25 PM CDT 025 Active Insulin [place], Disposable, (Unifine Pentips Plus) 32 gauge x [...] 180 Tablet 1 10/05/20 25 2:35 PM OPERATIONS AND MAINTENANCE TECHNICIAN 025 Active amoxicillin (AMOXIL) 875 mg tablet Take 1 Tablet (875 mg) by mouth 2 times daily for 14 days. 28 Tablet 10/11/20 12:50 PM OPERATIONS AND MAINTENANCE TECHNICIAN 025 2024 Active acetaminophen (TYLENOL) 500 mg tablet Take 2 Tablets (1,000 mg) by mouth 3 times daily as needed. 30 Tablet Active ibuprofen (MOTRIN) 800 mg tablet Take 1 Tablet (800 mg) by mouth 3 times daily as needed. 30 Tablet 10/18/20 10:41 AM OPERATIONS AND MAINTENANCE TECHNICIAN Active lidocaine (LIDODERM) 5 % Adhesive Patch, Medicated Apply 1 patch to the skin once daily; leave on most painful area for up to 12 hours, then have a 12 hour patch free period. 15 Patch 10/18/20 10:41 AM OPERATIONS AND MAINTENANCE TECHNICIAN Active methocarbamoL (ROBAXIN) 750 mg tablet Take 1 tablet by mouth three times daily as needed for pain 20 Tablet 10/18/20 10:41 AM OPERATIONS AND MAINTENANCE TECHNICIAN Active clonazePAM (KlonoPIN) 1 mg tablet Take 1 Tablet (1 mg) by mouth 2 times daily. 180 Tablet 1 08/30/20 3:28 PM CDT 025 2024 Discontinued Social [...] [employer] (INTERNAL) [facility] [employer] Medicare Part D
--- NOTE | 2025-10-20 09:35 | ED.WEAKNESS ---
HPI - Weakness General Chief complaint: Weakness Stated complaint: weakness Source: patient and old records reviewed Mode of arrival: EMS Limitations: no limitations History of Present Illness HPI Narrative: Patient is a 65 y/o male, with PMH of hypothyroidism, DM, who presents to the ED via EMS with c/o weakness. Patient reports he has issues with his balance and falls frequently. Had a ground level mechanical fall on 10/17. Was seen in the ED here afterwards with report of right-sided pain. Underwent CT brain, cervical spine, chest/abdomen/pelvis which did not show any traumatic findings. He was discharged home with Tylenol, ibuprofen, Robaxin, lidocaine patches. He states he has been taking these without improvement. Patient reports having more severe pain to the point he is feeling very weak and unable to move or get out of bed. EMS was called today. Patient denies any dizziness, lightheadedness, syncope, numbness. Patient is not on any anticoagulation. Patient currently lives at home alone. He states his recently . He has been under increased stress and depression about this. Has seen his PCP for this. Has reported some noncompliance with normal home medications and poor diet recently. Related Data Home Medications ?Medication ?Instructions ?Recorded ?Confirmed ?Last Taken ?Type aspirin 81 mg tablet,delayed 81 mg PO DAILY 02/20/22 09/16/25 Unknown History release (Adult Aspirin Regimen) latanoprost 0.005 % eye drops 1 drp EACH EYE QPM 06/25/24 09/16/25 Unknown History semaglutide 0.25 mg or 0.5 mg (2 0.25 mg subcut WEEKLY 09/16/25 09/16/25 Unknown History mg/3 mL) subcutaneous pen injector (Ozempic) Allergies Allergy/AdvReac Type Severity Reaction Status Date / Time lisinopril Allergy Severe Anaphylaxis Verified 10/20/25 09:18 losartan Allergy rash Verified 10/20/25 09:18 Review of Systems Review of Systems: All systems reviewed & are unremarkable except as noted in HPI. All systems reviewed & are unremarkable except as noted in HPI and below PMFSH Past Medical History Medical History Detached retina Head injury Angioedema Deep vein thrombosis (DVT) of calf muscle vein of right lower extremity Nasal septal deformity Pyogenic granuloma Acute stress disorder Strain of adductor muscle, fascia and tendon of right thigh, initial encounter Family History Family History Grandparent Diabetes mellitus Mother Diabetes mellitus Depression Family history of malignant neoplasm Social History Social History Social History: Caffeine-teac,coffee Smoking status: Never smoker Alcohol intake: never Substance use: never Substance use type: does not use Lack of Transportation: No Lack of Food: Never True Current Housing: I Have Housing Concerned About Future Housing: No Difficulty Paying Gas/Electric Bills: No Difficulty Paying for Meds: No Currently Unemployed: No Education: High School Diploma/GED Difficulty w/ Childcare or Family Care: No Spiritual care concerns: No Exam Narrative: GENERAL: Mildly unkempt, non-toxic, in no acute distress. HEAD: Normocephalic, atraumatic. ENT: MMs dry RESPIRATORY: Airway patent, respirations nonlabored. Poor respiratory effort. Lung sounds seemingly equal bilaterally CARDIOVASCULAR: Regular rate and rhythm without murmurs, rubs, or gallops. ABDOMINAL: Soft, no significant tenderness throughout abdomen, nondistended. Normoactive BS. MUSCULOSKELETAL: Moves all extremities. No gross deformities. TTP over R anterior/lateral/inferior rib cage/chest wall. No palpable bony deformities. No significant overlying skin changes or bruising. SKIN: Warm, dry, normal color. Healing/scabbed abrasions to RUE w/o signs of infection. Small abrasion to R lateral abdomen w/o signs of infection. NEURO: A&O X3. Speech clear. Cranial nerves II-XII grossly intact. Steady gait. No ataxic movements. PSYCHIATRIC: Somewhat flat affect, intermittently tearful, depressed mood. Normal interaction. Course Vital Signs Vital signs: Vital Signs Respiratory Rate 16 10/20/25 09:17 Blood Pressure 188/120 H 10/20/25 09:17 Pulse Oximetry 97 10/20/25 09:17 Temperature 97.9 F 10/20/25 09:23 Pulse Rate 77 10/20/25 13:15 Respiratory Rate 22 H 10/20/25 13:15 Blood Pressure 169/81 H 10/20/25 13:01 Pulse Oximetry 93 10/20/25 13:01 Oxygen Delivery Room Air 10/20/25 09:23 MDM - Weakness MDM Narrative Medical decision making narrative: Patient presented to ED with report of right-sided pain secondary to fall a few days ago, reporting weakness/difficulty moving/caring for himself d/t pain. Patient hypertensive upon arrival, likely a component of pain. Oxygen stable on room air. Denying feeling SOB, just c/o pain. Records reviewed from recent ED visit. CT scan of the chest/abdomen/pelvis was negative for traumatic findings. Repeat chest x-ray with right ribs today showing: Nondisplaced fractures of the distal eighth and ninth ribs. Consistent with clinical picture. Pain control given. No pneumothorax. No PNA. O2 stable on RA. Basic laboratory studies are otherwise fairly unremarkable. Minimal leukocytosis. Stable H&H. Stable electrolytes. Stable kidney function. Blood glucose is elevated at 308. Appears fairly consistent to previous records. Fluids are ongoing. EKG without concerning ischemic changes. Troponin undetectable. UA with evidence of dehydration, no signs of infection. Viral swabs negative. CT brain negative. TSH is mildly elevated to 5.34. T4 WNL. T3 slightly elevated. Patient will need admission for further pain control. Unable to even sit up in bed with assistance due to pain. Additionally, patient has not been able to take care of himself at home. His did recently pass away and he has been struggling with grief and feel he would benefit from care coordination for potential rehab placement versus home health care for additional support. Discussed case with Yasmeen TIRADO Hospitalist, accepted patient for admission. Patient and family in agreement with plan. Medical Records Attestation: I reviewed the patient's medical records. Lab Data Attestation: I reviewed the patient's lab results. 10/20/25 09:40 10/20/25 09:40 Labs: Lab Results 10/20/25 10/20/25 Range/Units 09:35 09:40 WBC 10.7 H (4.5-10.0) K/mm3 RBC 5.53 (4.6-6.20) M/mm3 Hgb 15.5 (14.0-18.0) g/dL Hct 46.1 (42.0-52.0) % MCV 83.4 (80-100) fl MCH 28.0 (26-34) pg MCHC 33.6 (32-36) g/dl RDW 13.0 (11.5-14.5) % Plt Count 248 (150-375) k/mm3 MPV 9.8 (7.4-10.4) fl Immature Gran % (Auto) 0.8 H (0-0.5) % Neut % (Auto) 71.7 (45.5-73.1) % Lymph % (Auto) 15.8 L (18.3-44.2) % [place] % (Auto) 7.7 (2.6-8.5) % Eos % (Auto) 3.5 (0-4.4) % Baso % (Auto) 0.5 (0.2-1.2) % Lymph # (Auto) 1.68 (0.9-3.2) K/mm3 [place] # (Auto) 0.8 H (0.1-0.6) K/mm3 Eos # (Auto) 0.4 H (0-0.3) K/mm3 Baso # (Auto) 0.1 (0.0-0.1) K/mm3 Abs Immat Gran (auto) 0.08 H (0.00-0.031) K/mm3 Absolute Neuts (auto) 7.7 H (1.3-6.7) K/mm3 Absolute Nucleated RBC 0.000 (0.0-0.012) K/mm3 Nucleated RBC % 0.0 (0.0-0.2) % PT 15.0 H (11.1-14.7) Seconds INR 1.2 APTT 36.5 (22.3-36.8) Seconds Sodium 135 L (137-145) mmol/L Potassium 3.9 (3.4-5.0) mmol/L Chloride 100 (98-107) mmol/L Carbon Dioxide 28 (22-30) mmol/L Anion Gap 7 (4-12) mmol/L BUN 16 (9-20) mg/dL Creatinine 0.56 L (0.7-1.3) mg/dL Estim Creat Clear Calc Not Reportable Estimated GFR > 60 (59 - ) Glucose 308 H (65-110) mg/dL Calcium 9.6 (8.4-10.2) mg/dL Magnesium 2.0 (1.6-2.3) mg/dL Total Bilirubin 1.3 (0.2-1.3) mg/dL AST 33 (17-59) U/L ALT 35 (6-50) U/L Alkaline Phosphatase 72 (38-126) U/L Total Creatine Kinase 87 (55-170) U/L Troponin I < 0.012 (0.000-0.034) ng/mL Total Protein 7.9 (6.3-8.2) g/dL Albumin 4.5 (3.5-5.1) g/dL TSH (Reflex) 5.340 H (0.465-4.68) uIU/mL Free T4 1.34 (0.78-2.19) ng/dL Total T3 1.91 H (0.82-1.58) NG/ML Urine Color Yellow (Yellow) Urine Appearance Clear (Clear) Urine pH 6.0 (5.0-9.0) Ur Specific [place] > 1.045 H (1.001-1.035) Urine Protein 2+ H (Negative) mg/dL Urine Glucose (UA) 3+ H (Negative) mg/dL Urine Ketones 1+ H (Negative) mg/dL Ur Blood (Man) Negative (Negative) Urine Nitrate Negative (Negative) Urine Bilirubin Negative (Negative) Urine Urobilinogen 1.0 (<2.0) mg/dL Leukocyte Esterase Rfl Negative (Negative) PATY/UL Urine RBC 0-2 (0-2) /hpf Urine WBC 0-5 (0-3) /hpf Ur Squamous Epith Cells None seen (Few) /hpf Urine Bacteria None seen /hpf Urine Casts 0-2 Influenza A (RT-PCR) Negative (Negative) Influenza B (RT-PCR) Negative (Negative) RSV (RT-PCR) Negative (Negative) SARS-CoV-2 RNA (RT-PCR) Negative (Negative) Imaging Data Attestation: I personally reviewed and interpreted this imaging study as follows: Radiologist's impression: ITS Impressions Head CT 10/20/25 10:33 IMPRESSION: 1. No acute intracranial findings. Ribs w/Chest X-Ray 10/20/25 10:37 Impression: Fractures detailed above ECG Data EKG #1: Attestation: I personally reviewed and interpreted this ECG as follows: ECG completion date: 10/20/25 ECG completion time: 09:49 EKG Interpretation: normal rate (80), sinus rhythm, non-specific ST changes and RBBB (incomplete) Discharge Plan Discharge Clinical Impression: Weakness, Unable to care for self, TSH elevation Multiple fractures of ribs of right side Qualifiers: Encounter type: initial encounter Fracture type: closed Qualified Code(s): S22.41XA - Multiple fractures of ribs, right side, initial encounter for closed fracture Patient Disposition: Still a Patient Condition: Stable
[2025-10-20] MEDS: HYDROcodone/acetaminophen (*CRX) 5-325 MG TABLET 1 TAB PO ×2 (09:41→20:26)
[2025-10-20 09:47] LABS: Hematocrit 46.1 % (42.0-52.0); Hemoglobin 15.5 g/dL (14.0-18.0); Immature Granulocyte Percent A 0.8 % (0-0.5); Lymphocytes Absolute Auto 1.68 K/mm3 (0.9-3.2); Mean Corpuscular HGB Conc 33.6 g/dl (32-36); Mean Corpuscular Hemoglobin 28.0 pg (26-34); Mean Corpuscular Volume 83.4 fl (80-100); Nucleated Red Blood Cells Absolute Auto 0.000 K/mm3 (0.0-0.012); Nucleated Red Blood Cells Perc 0.0 % (0.0-0.2); Platelet Count Result 248 k/mm3 (150-375); Red Blood Count 5.53 M/mm3 (4.6-6.20); White Blood Count 10.7 K/mm3 (4.5-10.0)
[2025-10-20 09:52] LABS: Add Urine Microscopic? YES; Appearance Urine Clear (Clear); Glucose Urine UA 3+ mg/dL (Negative); Leukocyte Esterase Ur Negative LEU/UL (Negative); Nitrate Urine Negative (Negative); Non Pathogenic Casts 0-2; Specific Grav Ur > 1.045 (1.001-1.035)
[2025-10-20] MEDS: SODIUM CHLORIDE 0.9% IV 1,000 ML 999 ML IV CONT (10:02)
[2025-10-20 10:03] LABS: INR 1.2; Prothrombin Time 15.0 Seconds (11.1-14.7)
[2025-10-20 10:04] LABS: Partial Thromboplastin Time 36.5 Seconds (22.3-36.8)
[2025-10-20 10:13] LABS: Alanine Aminotransferase 35 U/L (6-50); Albumin Level 4.5 g/dL (3.5-5.1); Alkaline Phosphatase 72 U/L (38-126); Anion Gap 7 mmol/L (4-12); Aspartate Amino Transferase 33 U/L (17-59); Bilirubin,Total 1.3 mg/dL (0.2-1.3); Blood Urea Nitrogen 16 mg/dL (9-20); Calcium 9.6 mg/dL (8.4-10.2); Carbon Dioxide 28 mmol/L (22-30); Chloride 100 mmol/L (98-107); Creatine Kinase 87 U/L (55-170); Estimated Glomerular Filt Rate > 60; Glucose 308 mg/dL (65-110); Magnesium 2.0 mg/dL (1.6-2.3); Potassium 3.9 mmol/L (3.4-5.0); Sodium 135 mmol/L (137-145); Total Protein 7.9 g/dL (6.3-8.2)
[2025-10-20 10:24] LABS: Troponin I < 0.012 ng/mL (0.000-0.034)
[2025-10-20 10:25] LABS: Influenza A QL RT-PCR Negative (Negative); Influenza B QL RT-PCR Negative (Negative); RSV RNA, RT-PCR Negative (Negative); SARS-CoV-2 RNA PCR Negative (Negative)
--- NOTE | 2025-10-20 10:48 | PC.NURSE ---
Called chem, stated the TSH is running at this time.
[2025-10-20 10:49] LABS: Thyroid Stimulating Hormone Reflex 5.340 uIU/mL (0.465-4.68)
[2025-10-20] MEDS: KETOROLAC 30 MG/ML VIAL (*BKC) IV PUSH (10:58)
[2025-10-20 11:15] LABS: Free T4 Free Thyroxine Reflex 1.34 ng/dL (0.78-2.19)
--- NOTE | 2025-10-20 11:21 | PC.NURSE ---
diabetic lunch ordered
[2025-10-20 12:07] LABS: Total Triiodothyronine (T3) 1.91 NG/ML (0.82-1.58)
--- NOTE | 2025-10-20 12:41 | P.HP_ITS ---
H&P: HPI History of Present Illness Date/Time: 10/20/25 12:41 Chief Complaint: Chest wall pain Narrative: 65-year-old male with past medical history of diabetes, presents the hospital with chest wall pain. On 10/17/2025 patient had a fall and presented to the hospital chest x-ray at that time did not show any rib fractures and he was sent home pain management. Since then patient has not been able to do his ADLs and also acute pain. On assessment patient is unable to talk in full sentences has short shallow breathing, and grunting. Pain meds adjusted. No hypoxia or respiratory distress noted. In the ED the patient states that he was noncompliant with his medications however at bedside he states that he has been compliant has . He states that he has recently seen his PCP and that they are adjusting his Synthroid and diabetic medications at home. Patient denies fevers chills nausea or vomiting. He does state that he has this shuffling gait. And upper extremity tremors are noted at rest. Lab work in the ED shows leukocytosis at 10.7 INR 1.2, sodium of 135, creatinine of 0.56, blood glucose of 308, troponin negative, TSH elevated at 5.34 and T3 elevated at 1.91, UA negative for infection, influenza A/B RSV COVID negative. Head CT shows no acute findings chest x-ray with right rib fractures 8 the . Hemoglobin A1c on 09/09/2025 was 11.0. Review of Systems Review of Systems: 12 systems were reviewed and are negativ e except for as per HPI. [facility] Past Medical History Medical History Detached retina Head injury Angioedema Deep vein thrombosis (DVT) of calf muscle vein of right lower extremity Nasal septal deformity Pyogenic granuloma Acute stress disorder Strain of adductor muscle, fascia and tendon of right thigh, initial encounter Family History Family History Grandparent Diabetes mellitus Mother Diabetes mellitus Depression Family history of malignant neoplasm Social History Social History Social History: Caffeine-teac,coffee Smoking status: Never smoker Alcohol intake: never Substance use: never Substance use type: does not use Lack of Transportation: No Lack of Food: Never True Current Housing: I Have Housing Concerned About Future Housing: No Difficulty Paying Gas/Electric Bills: No Difficulty Paying for Meds: YES Currently Unemployed: No Education: High School Diploma/GED Difficulty w/ Childcare or Family Care: No Spiritual care concerns: No Meds Home Medications and Allergies Home Medications ?Medication ?Instructions ?Recorded ?Confirmed ?Type blood sugar diagnostic (OneTouch #100 ea 01/10/2109/25 Rx Ultra Blue Test Strip) aspirin 81 mg tablet,delayed 81 mg PO DAILY 02/20/22 1 12/20/24 History release (Adult Aspirin Regimen) inhalational spacing device #10 ea 01/24/23 10/20/25 R x (Aerochamber Plus Flow-Vu) latanoprost 0.005 % eye drops 1 drp EACH EYE QPM 06/2510/20/25 History albuterol sulfate 90 mcg/actuation 1 puff inhalation Q 4H PRN 08/31/24 10/20/25 Rx aerosol inhaler (Ventolin HFA) shortness of breath or wheezing #8.5 grams dapagliflozin propanediol 10 mg 10 mg PO DAILY #90 tab s 01/06/25 10/20/25 Rx tablet (Farxiga) Held on 10/20/25. Instructions: Patient no longer taking levothyroxine 200 mcg tablet 200 mcg PO DAILY #90 tabs 02/15/25 10/20/25 Rx (Synthroid) sertraline 100 mg tablet See Rx Instructions .Route 0 04/14/25 10/20/25 Rx .COMPLEX #180 tabs bupropion HCl 150 mg 24 hr tablet, 150 mg PO QAM #90 t abs 04/25/25 10/20/25 Rx extended release bupropion HCl 300 mg 24 hr tablet, See Rx Instructions .Route 05/13/25 10/20/25 Rx extended release .COMPLEX #90 tabs atorvastatin 10 mg tablet See Rx Instructions .Route 0 05/30/25 10/20/25 Rx .COMPLEX #90 tabs flash glucose sensor (FreeStyle #6 ea 06/27/25 5 Rx Gerardo 14 Day Sensor kit) Held on 10/20/25. Instructions: Patient no longer taking cyclobenzaprine 10 mg tablet 10 mg PO TID PRN muscle s pasm #30 06/29/25 10/20/25 Rx Held on 10/20/25. tabs Instructions: Patient no longer taking metformin 500 mg tablet,extended See Rx Instructions . Route 07/18/25 10/20/25 Rx release 24 hr .COMPLEX #360 tabs glyburide 5 mg tablet See Rx Instructions .Route 0 08/03/25 10/20/25 Rx .COMPLEX #180 tabs insulin glargine 100 unit/mL (3 14 unit (0.14 mL) subc ut BID #30 mL 09/09/25 10/20/25 Rx mL) subcutaneous pen (Lantus Solostar U-100 Insulin) pen needle, diabetic 32 gauge x See Rx Instructions .R oute 09/09/25 10/20/25 Rx (Unifine Pentips Plus) .COMPLEX #100 ea alprazolam 0.25 mg tablet 0.25 mg PO TID PRN anxiety # 60 tabs 09/16/25 10/20/25 Rx semaglutide 0.25 mg or 0.5 mg (2 0.25 mg subcut WEEKLY 09/16/25 10/20/25 History mg/3 mL) subcutaneous pen injector (L[employer]) Held on 10/20/25. Instructions: Patient no longer taking clonazepam 1 mg tablet (Klonopin) 1 mg PO BID #180 tab s 10/05/25 10/20/25 Rx acetaminophen 500 mg tablet 1,000 mg (2 x 500 mg) PO T ID PRN 10/17/25 10/20/25 Rx (Tylenol Extra Strength) pain #30 tabs ibuprofen 800 mg tablet 800 mg PO TID PRN pain #30 t abs 10/17/25 10/20/25 Rx lidocaine 5 % topical patch 1 patch topical DAILY #15 ea 10/17/25 10/20/25 Rx methocarbamol 750 mg tablet 750 mg PO TID PRN pain #20 tabs 10/17/25 10/20/25 Rx trazodone 50 mg tablet 50 mg PO HS 10/20/25 5 History Allergies Allergy/AdvReac Type Severity Reaction Status Date / Time lisinopril Allergy Severe Anaphylaxis Verified 10/20/25 14:51 losartan Allergy rash Verified 10/20/25 14:51 Vital Signs Vital Signs - 24 hr 10/20/25 09:17 10/20/25 09:20 10/20/25 09:22 Temperature Pulse Rate 79 Respiratory Rate 16 Blood Pressure 188/120 H Pulse Oximetry 97 94 Oxygen Delivery Room Air 10/20/25 09:23 10/20/25 09:31 10/20/25 09:46 Temperature 97.9 F Pulse Rate 80 84 80 Respiratory Rate 19 29 H 19 Blood Pressure 188/120 H 183/145 H 186/93 H Pulse Oximetry 99 95 Oxygen Delivery Room Air 10/20/25 10:01 10/20/25 10:35 10/20/25 10:46 Temperature Pulse Rate 80 75 80 Respiratory Rate 18 29 H 17 Blood Pressure 189/94 H 207/101 H 194/99 H Pulse Oximetry 95 92 93 Oxygen Delivery Exam Narrative: General: Appears unhealthy HEENT: normocephalic, atraumatic. Mucous membranes moist. EOMI, PERRLA, bilateral sclera anicteric, no conjunctival injection. Neck supple without JVD, lymphadenopathy, or bruit. Respiratory: clear bilaterally. No rales/rhonic/wheezes. Cardiovascular: Shallow grunt like breathing. No acute respiratory distress Abdomen: Obese Soft, round, no pulsatile masses, nondistended and nontender. No rebound, no guarding. Bowel sounds present to all four quadrants. No high pitch or tinkling sounds, resonant to percussion. Extremities: No cyanosis, clubbing, or edema present. Pulses are palpable 2/2. Active ROM to all four extremities. Upper extremity tremors at rest Neuro: Alert and orientated x 4. PERRLA. Cranial nerves 2-12 intact without focal deficit. Skin: Warm, dry, and intact, without rash, erythema, or lesion. Abrasions to the right forearm and vega Psych: pleasant, cooperative, normal speech, normal affect, no hallucinations, no dysarthia H&P: Results Labs Labs: Short CBC 10/20/25 Range/Units 09:40 WBC 10.7 H (4.5-10.0) K/mm3 Hgb 15.5 (14.0-18.0) g/dL Hct 46.1 (42.0-52.0) % Plt Count 248 (150-375) k/mm3 [facility] 10/20/25 09:40 Sodium 135 L Potassium 3.9 Chloride 100 Carbon Dioxide 28 BUN 16 Creatinine 0.56 L Glucose 308 H Calcium 9.6 Cardiac Enzymes 10/20/25 Range/Units 09:40 Total Creatine Kinase 87 (55-170) U/L Troponin I < 0.012 (0.000-0.034) ng/mL Liver Function 10/20/25 Range/Units 09:40 Total Bilirubin 1.3 (0.2-1.3) mg/dL AST 33 (17-59) U/L ALT 35 (6-50) U/L Alkaline Phosphatase 72 (38-126) U/L Albumin 4.5 (3.5-5.1) g/dL Urine 10/20/25 Range/Units 09:35 Urine Color Yellow (Yellow) Urine Appearance Clear (Clear) Urine pH 6.0 (5.0-9.0) Ur Specific [place] > 1.045 H (1.001-1.035) Urine Protein 2+ H (Negative) mg/dL Urine Glucose (UA) 3+ H (Negative) mg/dL Assessment and Plan Assessment and plan (1) Multiple fractures of ribs of right side: Code(s): S22.41XA - Multiple fractures of ribs, right side, initial encounter for closed fracture Status: Acute Assessment and Plan: Incentive spirometer Gabapentin, lidocaine, Tylenol, Robaxin, Toradol for pain management scheduled oxycodone p.r.n. (2) Type 2 diabetes mellitus with diabetic dermatitis: Code(s): E11.620 - Type 2 diabetes mellitus with diabetic dermatitis Status: Acute Assessment and Plan: Hemoglobin A1c 11.0 Accu-Cheks a.cMartin Chang of SSI and Lantus Diabetic diet Hold home metformin Has a follow-up with PCP in December (3) Hypothyroidism (acquired): Code(s): E03.9 - Hypothyroidism, unspecified Status: Acute Assessment and Plan: Continue home dose Synthroid (4) TSH elevation: Code(s): R79.89 - Other specified abnormal findings of blood chemistry Status: Acute Assessment and Plan: TSH high at 5.340, T4 normal, T3 high at 1.91 Will continue his home med Patient states that he has been somewhat noncompliant. (5) Bereavement: Code(s): Z63.4 - Disappearance and of family member Status: Acute Assessment and Plan: Patient's passes July Has been having difficulties taking care of himself, has seen his PCP Patient is on medicine for depression anxiety will continue (6) Weakness: Code(s): R53.1 - Weakness Status: Acute Assessment and Plan: PT OT eval Patient may need go to rehab (7) Gait disturbance: Code(s): R26.9 - Unspecified abnormalities of gait and mobility Status: Acute Assessment and Plan: Patient complains of shuffling gait, upper extremities tremors at rest Patient may benefit from Neurology consult Will do PT OT 1st Quality VTE Prophylaxis VTE prophylaxis: mechanical ordered and pharmacologic ordered Hospitalist MIPS Advance Care Plan I have confirmed that the patient's Advanced Care Plan is present, code status is documented, or surrogate decision maker is listed in patient medical record.: Yes Medication Reconciliation I have utilized all available resources to obtain, update and review the patients current medications (includes all prescriptions, OTC, herbals, cannabis, and nutritional supplements).: Yes
--- NOTE | 2025-10-20 13:28 | WPCEDHO ---
ED Hand Off Checklist All vitals saved: yes IV Site documented: yes All med administrations documented: will place Lidocaine patch prior to coming up Triage Note Triage Note Pt to ED Via [facility] 10/20/25 09:23 from home with severe weakness and upable to get himself him up out of bed. was seen this week at this ED for right sided fall. but pain is worse and unable to care for self at the moment. Pt states lost his recentlty. Allergies lisinopril Allergy (Severe, Verified 10/20/25 09:18) Anaphylaxis losartan Allergy (Verified 10/20/25 09:18) rash Family History (Last Reviewed 10/20/25 @ 10:33 by Lian Khan PA-C) Grandparent Diabetes mellitus Mother Diabetes mellitus Depression Family history of malignant neoplasm Administered/Completed Medications Discontinued Medications Hydrocodone Bitart/Acetaminophen (Hydrocodone/Acetaminophen (*Crx) 5-325 Mg Tablet) 1 tab PO ONCE STA Stop: 10/20/25 09:29 Last Admin: 10/20/25 09:41 Dose: 1 tab Documented By: LIZZY Sodium Chloride (Normal Saline Iv) 1,000 mls @ 999 mls/hr IV CONT .Q1H1M STA Stop: 10/20/25 10:58 Last Infusion: 10/20/25 10:49 Dose: Infused Documented By: Admin: 10/20/25 10:02 Dose: 999 mls/hr Documented By: CASSANDRA Ketorolac Tromethamine (Ketorolac 30 Mg/Ml Vial (*Bkc)) 30 mg IV PUSH ONCE STA Stop: 10/20/25 10:48 Last Admin: 10/20/25 10:58 Dose: 30 mg Documented By: LIZZY Methocarbamol (Methocarbamol 500 Mg Tablet) 1,000 mg PO ONCE ONE Stop: 10/20/25 09:29 Last Admin: 10/20/25 09:41 Dose: 1,000 mg Documented By: LIZZY Nicholas 10/20/25 11:21 Nurse Note by Marivel Latham diabetic lunch ordered Initialized on 10/20/25 11:21 - END OF NOTE 10/20/25 10:48 Nurse Note by Page Green Called chem, stated the TSH is running at this time. 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 Mobile Web Application Developer Yes Applied Pulse Rate (60-100) 79 EKG Rythm Sinus Rhythm IV / Saline Lock, Insert Start: 10/20/25 09:03 Freq: Status: Active Protocol: Document 10/20/25 09:44 AMR (Rec: 10/20/25 09:50 AMR [id number]) IV Assessment Peripheral Access Left Antecubital IV Catheter Access Initiated IV Insertion Date 10/20/25 IV Insertion Time 09:50 Catheter Gauge 20 IV Insertion 1 Attempts Ultrasound Used for No Placement IV Site Assessment WNL IV Care and WNL,Access Locked Maintenance PA: Cardiovascular Assessment Start: 10/20/25 09:03 Freq: Status: Active Protocol: Document 10/20/25 09:21 AMR (Rec: 10/20/25 09:22 AMR [id number]) Cardiovascular Assessment Cardiovascular Chest Pain Symptoms Skin Description Normal Color Heart Sounds Normal Rhythm/Strength Apical Monitor Rhythm Regular Capillary Refill Bilateral Upper Extremity Capillary Refill Normal/Less than 2 Seconds Edema Assessment Right Leg(s) Edema Degree 1+ (2 mm or less) Chest Pain Assessment Chest Pain Intensity 9 Chest Pain Location Right Chest Chest Pain Duration Less than 5 Minutes Chest Pain Radiation Back Precipitating None Factors PA: Neurological Assessment Start: 10/20/25 09:03 Freq: Status: Active Protocol: Document 10/20/25 09:51 AMR (Rec: 10/20/25 09:52 AMR [id number]) Neurological Assessment Level of Alert Consciousness Arousable to Verbal Orientation Oriented to Person,Oriented to Place,Oriented to Time Neurological Frequent Falls,Weakness, General Symptoms Hallucination Type None Unable to Redirect No Behavior Behavior Combative Patient Able to Comprehend Comprehension Memory Description Intact Ability to Maintain Normal Balance Facial Symmetry Symmetrical Speech Pattern Clear Ability to Swallow Normal All Extremities Extremity Movement 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,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 Description All Extremities Sensation Normal Description [place] Coma Scale Eyes Open Verbal Oriented and Alert Motor Follows Commands [place] Coma Total 15 Score Last Vital Signs Temperature 97.9 F 10/20/25 09:23 Pulse Rate 77 10/20/25 13:15 Respiratory Rate 22 H 10/20/25 13:15 Pulse Oximetry 93 10/20/25 13:01 Blood Pressure 169/81 H 10/20/25 13:01 Blood Pressure Mean 107 10/20/25 13:01 Blood Pressure Position Sitting 10/20/25 09:23 Oxygen Delivery Room Air 10/20/25 09:23 Weight 113.6 kg 10/20/25 10:48 Last Result - Abnormals Only WBC 10.7 K/mm3 (4.5-10.0) H 10/20/25 09:40 Immature Gran % (Auto) 0.8 % (0-0.5) H 10/20/25 09:40 Lymph % (Auto) 15.8 % (18.3-44.2) L 10/20/25 09:40 Walker # (Auto) 0.8 K/mm3 (0.1-0.6) H 10/20/25 09:40 Eos # (Auto) 0.4 K/mm3 (0-0.3) H 10/20/25 09:40 Abs Immat Gran (auto) 0.08 K/mm3 (0.00-0.031) H 10/20/25 09:40 Absolute Neuts (auto) 7.7 K/mm3 (1.3-6.7) H 10/20/25 09:40 PT 15.0 Seconds (11.1-14.7) H 10/20/25 09:40 Sodium 135 mmol/L (137-145) L 10/20/25 09:40 Creatinine 0.56 mg/dL (0.7-1.3) L 10/20/25 09:40 Glucose 308 mg/dL (65-110) H 10/20/25 09:40 TSH (Reflex) 5.340 uIU/mL (0.465-4.68) H 10/20/25 09:40 Total T3 1.91 NG/ML (0.82-1.58) H 10/20/25 09:40 Ur Specific [place] > 1.045 (1.001-1.035) H 10/20/25 09:35 Urine Protein 2+ mg/dL (Negative) H 10/20/25 09:35 Urine Glucose (UA) 3+ mg/dL (Negative) H 10/20/25 09:35 Urine Ketones 1+ mg/dL (Negative) H 10/20/25 09:35 Most Recent Suicide Severity Rating Suicide Severity Rating NO RISK INDICATED 10/20/25 09:23
[2025-10-20] MEDS: LIDOCAINE 5% PATCH 1 PATCH TRANSDERM (13:49)
--- NOTE | 2025-10-20 14:35 | PC.NURSE ---
This patient, Wallace Rutherford, was admitted to [address] [place] [address] Room [facility] at 1435. Patient/family oriented to hospital policies and general routines including ID bracelet, bed and alarms, visiting hours, pain management, procedures, bathroom and other care routines, personal items, smoking policy, room service/diet, and visiting hours. Information on how to activate the Rapid Response Team has been discussed. Patient/Family are encouraged to report perceived risks to care and to ask questions if they do not understand what they are told or what they should do.
[2025-10-20] MEDS: MORPHINE SULFATE (*CRX) 4 MG/ML INJ IV PUSH (16:59)
[2025-10-20] MEDS: ALPRAZolam (*CRX) 0.5 MG TABLET PO (17:00)
[2025-10-20] MEDS: LATANOPROST 0.005% OP SOLN 2.5 ML BTL 1 DROP EACH EYE (18:17)
[2025-10-20] MEDS: INSULIN GLARGINE (*BKC) 100 UNITS/ML 14 UNITS SUB-Q (19:22)
[2025-10-20] MEDS: SERTRALINE HCL 50 MG TABLET 100 MG BY MOUTH (20:18)
[2025-10-20] MEDS: ATORVASTATIN 10 MG TABLET BY MOUTH (20:18)
[2025-10-20] MEDS: INSULIN ASPART (*BKC) 100 UNITS/ML 7 UNITS SUB-Q (20:19)
[2025-10-20] MEDS: ACETAMINOPHEN 325 MG TABLET 650 MG PO (21:21)
[2025-10-20] MEDS: SENNOSIDES 8.6 MG TABLET PO (21:21)
[2025-10-20] MEDS: KETOROLAC 15 MG/ML VIAL (*BKC) IV PUSH (21:22)
[2025-10-21] VITALS (9 sets, daily range): BP systolic 169–177; BP diastolic 84–92; PULSE 68–82; RESP 18; TEMP 36.2–37; O2SAT 94–98; BMI 37.3
[2025-10-21] MEDS: KETOROLAC 15 MG/ML VIAL (*BKC) IV PUSH ×4 (03:38→20:58)
[2025-10-21] MEDS: LEVOTHYROXINE SODIUM 100 MCG TABLET 200 MCG PO (06:03)
[2025-10-21] MEDS: ACETAMINOPHEN 325 MG TABLET 650 MG PO ×3 (06:03→17:17)
[2025-10-21] MEDS: buPROPion HCL XL (24 HR) 150 MG TABCR 450 MG BY MOUTH (08:26)
[2025-10-21] MEDS: LIDOCAINE 5% PATCH 1 PATCH TRANSDERM (08:26)
[2025-10-21] MEDS: SERTRALINE HCL 50 MG TABLET 100 MG BY MOUTH ×2 (08:26→20:57)
[2025-10-21] MEDS: ASPIRIN 81 MG ENTERIC TABLET PO (08:26)
--- NOTE | 2025-10-21 08:26 | P.PNIM_ITS ---
Progress Note: A&P Assessment and Plan (1) Multiple fractures of ribs of right side: Qualifiers: Encounter type: initial encounter Fracture type: closed Qualified Code(s): S22.41XA - Multiple fractures of ribs, right side, initial encounter for closed fracture Code(s): S22.41XA - Multiple fractures of ribs, right side, initial encounter for closed fracture Status: Acute Assessment and Plan: - Rib XR with nondisplaced fractures of the distal 8th and 9th ribs -Incentive spirometer -lidocaine, Tylenol, Robaxin, Toradol for pain management -oxycodone p.r.n. - pain improved (2) Bereavement: Code(s): Z63.4 - Disappearance and of family member Status: Acute Assessment and Plan: -Patient's passed in July. Has been very anxious/depressed. Having trouble sleeping. -continue home antidepressants. Concern for polypharmacy as patient has been prescribed and taking both Xanax and Klonopin. - psych consulted, appreciate recs (3) Type 2 diabetes mellitus with diabetic dermatitis: Code(s): E11.620 - Type 2 diabetes mellitus with diabetic dermatitis Status: Acute Assessment and Plan: -Hemoglobin A1c 11.0 - hold home metformin, semaglutide - increase Lantus to 18u BID - schedule Novolog 5 u TID WM. Medium dose SSI. - Diabetic diet. Patient admits to mainly drinking soda only at home. - hypoglycemia protocol - clinical unit educator consulted (4) Hypothyroidism (acquired): Code(s): E03.9 - Hypothyroidism, unspecified Status: Acute Assessment and Plan: -Continue home Synthroid (5) Weakness: Code(s): R53.1 - Weakness Status: Acute Assessment and Plan: -PT OT eval, may benefit from rehab (6) Gait disturbance: Code(s): R26.9 - Unspecified abnormalities of gait and mobility Status: Acute Assessment and Plan: -Patient complains of shuffling gait, upper extremities tremors at rest -Suspect some of these symptoms related to anxiety and possible peripheral neuropathy in setting of diabetes. Would benefit from outpatient neurology consultation. Plan DVT prophylaxis: SCDs Dispo:home likely tomorrow if blood glucose controlled Code status: full code Subjective Date/time seen: 10/21/25 08:26 Interval history: Patient seen and examined up in chair. Pain well-controlled, anxiety better, but still present. Confirmed with patient he is taking both Klonopin and Xanax at home. Discussed risk for polypharmacy. Also discussed insulin compliance. Review of Systems Review of Systems: 12 systems were reviewed and are negativ e except for as per HPI. Exam Narrative: General: NAD Eyes: EOMI ENT: neck supple Cardiovascular: Regular rate and rhythm Respiratory: Clear to auscultation, respirations even and unlabored on RA Gastrointestinal: Soft, non tender Genitourinary: no suprapubic tenderness Musculoskeletal: No edema Skin: warm, dry Neuro: Alert. Psych: anxious Objective Data Vital Signs Vital Signs: Vital Signs - 24 hr 10/20/25 09:17 10/20/25 09:20 10/20/25 09:22 Temperature Pulse Rate 79 Respiratory Rate 16 Blood Pressure 188/120 H Pulse Oximetry 97 94 Oxygen Delivery Room Air Fraction of Inspired Oxygen 10/20/25 09:23 10/20/25 09:31 10/20/25 09:46 Temperature 97.9 F Pulse Rate 80 84 80 Respiratory Rate 19 29 H 19 Blood Pressure 188/120 H 183/145 H 186/93 H Pulse Oximetry 99 95 Oxygen Delivery Room Air Fraction of Inspired Oxygen 10/20/25 10:01 10/20/25 10:35 10/20/25 10:46 Temperature Pulse Rate 80 75 80 Respiratory Rate 18 29 H 17 Blood Pressure 189/94 H 207/101 H 194/99 H Pulse Oximetry 95 92 93 Oxygen Delivery Fraction of Inspired Oxygen 10/20/25 11:01 10/20/25 11:15 10/20/25 11:16 Temperature Pulse Rate 76 76 74 Respiratory Rate 17 19 Blood Pressure 181/90 H 187/92 H Pulse Oximetry 96 95 97 Oxygen Delivery Fraction of Inspired Oxygen 10/20/25 11:30 10/20/25 11:31 10/20/25 11:45 Temperature Pulse Rate 76 79 75 Respiratory Rate 19 17 Blood Pressure 175/99 H Pulse Oximetry 94 Oxygen Delivery Fraction of Inspired Oxygen 10/20/25 12:00 10/20/25 12:15 10/20/25 12:30 Temperature Pulse Rate 81 73 73 Respiratory Rate 24 H 24 H 24 H Blood Pressure Pulse Oximetry 93 92 Oxygen Delivery Fraction of Inspired Oxygen 10/20/25 12:45 10/20/25 13:00 10/20/25 13:01 Temperature Pulse Rate 72 81 78 Respiratory Rate 22 H 24 H 24 H Blood Pressure 169/81 H Pulse Oximetry 94 93 Oxygen Delivery Fraction of Inspired Oxygen 10/20/25 13:15 10/20/25 13:50 10/20/25 14:01 Temperature Pulse Rate 77 82 Respiratory Rate 22 H 20 Blood Pressure 180/88 H 164/84 H Pulse Oximetry 97 Oxygen Delivery Fraction of Inspired Oxygen 10/20/25 16:00 10/20/25 17:45 10/20/25 20:00 Temperature Pulse Rate 87 84 Respiratory Rate Blood Pressure Pulse Oximetry Oxygen Delivery Room Air Fraction of Inspired Oxygen 10/20/25 21:14 10/20/25 21:22 10/20/25 21:53 Temperature 97.7 F Pulse Rate 83 Respiratory Rate 18 Blood Pressure 156/87 H Pulse Oximetry 92 95 Oxygen Delivery Room Air Room Air Fraction of Inspired Oxygen 10/21/25 00:00 10/21/25 04:00 10/21/25 04:15 Temperature 97.2 F L Pulse Rate 81 68 69 Respiratory Rate 18 Blood Pressure 169/84 H Pulse Oximetry 95 Oxygen Delivery Fraction of Inspired Oxygen Intake/Output Intake/Output: Intake & Output 10/18/25 10/19/25 10/20/25 10/21/25 23:59 23:59 23:59 23:59 Intake Total 1940 250 Output Total 350 600 Balance 1590 -350 Meds/Results Medications: Active Medications Generic Name Dose Route Start Last Admin Trade Name Freq PRN Reason Stop Dose Admin Acetaminophen 650 mg 10/20/25 21:00 10/21/25 06:03 Acetaminophen 325 Mg Tablet PO 650 mg Q6HR GERARD Administration Albuterol 1 puff 10/20/25 17:16 Albuterol Sulfate (*Sp) Aerosol 1 Puff INHALATION Q4HRT PRN Shortness Of Breath Or Wheezin Alprazolam 0.5 mg 10/20/25 13:00 10/20/25 17:00 Alprazolam (*Crx) 0.5 Mg Tablet PO 0.5 mg TID PRN Administration Anxiety Artificial Tears 1 drop 10/20/25 16:53 Artificial Tears Ophth Soln 15 Ml Bottle EACH EYE QID PRN Dry Eye(s) Aspirin 81 mg 10/21/25 09:00 Aspirin 81 Mg Enteric Tablet PO DAILY GERARD Atorvastatin Calcium 10 mg 10/20/25 21:00 10/20/25 20:18 Atorvastatin 10 Mg Tablet BY MOUTH 10 mg HS GERARD Administration Bupropion HCl 450 mg 10/21/25 09:00 Bupropion Hcl Xl (24 Hr) 150 Mg Tabcr BY MOUTH DAILY GERARD Dextrose 12.5 gm 10/20/25 12:33 Dextrose 50% 25 Gm/50 Ml Syringe IV PUSH PRN PRN Hypoglycemia Protocol Glucagon 1 mg 10/20/25 12:33 Glucagon For Inj 1 Mg Vial IM PRN PRN Hypoglycemia Protocol Glucose 15 gm 10/20/25 12:33 Glucose Oral Gel 15 Gm Of Glucse In 37.5 Gm Tube PO PRN PRN Hypoglycemia Protocol Hydralazine HCl 10 mg 10/20/25 12:59 10/20/25 13:49 Hydralazine Hcl 20 Mg/Ml Vial IV PUSH 10 mg Q8H PRN Administration Blood Pressure - High Dextrose 1,000 mls @ 100 mls/hr 10/20/25 12:33 Dextrose 5% 1,000 Ml IVPB PRN PRN Hypoglycemia Protocol Insulin Aspart 4 - 8 units 10/21/25 08:00 Insulin Aspart (*Bkc) 100 Units/Ml SUB-Q TIDWM [facility] Protocol Insulin Glargine 14 units 10/21/25 09:00 Insulin Glargine (*Bkc) 100 Units/Ml SUB-Q BID GERARD Ketorolac Tromethamine 15 mg 10/20/25 21:00 10/21/25 03:38 Ketorolac 15 Mg/Ml Vial (*Bkc) IV PUSH 15 mg Q6H GERARD Administration Latanoprost 1 drop 10/20/25 18:00 10/20/25 18:17 Latanoprost 0.005% Op Soln 2.5 Ml Btl EACH EYE 1 drop QPM GERARD Administration Levothyroxine Sodium 200 mcg 10/21/25 06:30 10/21/25 06:03 Levothyroxine Sodium 100 Mcg Tablet PO 200 mcg DAILY@0630 GERARD Administration Lidocaine 1 patch 10/20/25 13:05 10/20/25 13:49 Lidocaine 5% Patch TRANSDERM 1 patch DAILY GERARD Administration Methocarbamol 750 mg 10/20/25 21:00 10/20/25 21:21 Methocarbamol 750 Mg Tablet PO 750 mg QID GERARD Administration Ondansetron HCl 4 mg 10/20/25 12:33 Ondansetron Inj 4 Mg/2 Ml Vial IV PUSH Q4H PRN Nausea Oxycodone HCl 5 mg 10/20/25 20:54 Oxycodone Hcl (*Crx) 5 Mg Tab Ir PO Q4H PRN Pain Rated 4-6 Oxycodone HCl 10 mg 10/20/25 20:54 Oxycodone Hcl (*Crx) 5 Mg Tab Ir PO Q4H PRN Pain Rated 7-10 Senna 8.6 mg 10/20/25 21:00 10/20/25 21:21 Sennosides 8.6 Mg Tablet PO 8.6 mg HS GERARD Administration Sertraline HCl 100 mg 10/20/25 21:00 10/20/25 20:18 Sertraline Hcl 50 Mg Tablet BY MOUTH 100 mg Q12HR GERARD Administration Trazodone HCl 50 mg 10/20/25 21:00 10/20/25 20:18 Trazodone Hcl 50 Mg Tablet PO 50 mg HS GERARD Administration Radiology Results: ITS Impressions Head CT 10/20/25 10:33 IMPRESSION: 1. No acute intracranial findings. Ribs w/Chest X-Ray 10/20/25 10:37 Impression: Fractures detailed above Labs Labs: Laboratory Results - last 24 hr 10/20/25 10/20/25 10/20/25 09:35 09:40 19:25 WBC 10.7 H RBC 5.53 Hgb 15.5 Hct 46.1 MCV 83.4 MCH 28.0 MCHC 33.6 RDW 13.0 Plt Count 248 MPV 9.8 Immature Gran % (Auto) 0.8 H Neut % (Auto) 71.7 Lymph % (Auto) 15.8 L [place] % (Auto) 7.7 Eos % (Auto) 3.5 Baso % (Auto) 0.5 Lymph # (Auto) 1.68 [place] # (Auto) 0.8 H Eos # (Auto) 0.4 H Baso # (Auto) 0.1 Abs Immat Gran (auto) 0.08 H Absolute Neuts (auto) 7.7 H Absolute Nucleated RBC 0.000 Nucleated RBC % 0.0 PT 15.0 H INR 1.2 APTT 36.5 Sodium 135 L Potassium 3.9 Chloride 100 Carbon Dioxide 28 Anion Gap 7 BUN 16 Creatinine 0.56 L Estim Creat Clear Calc Not Reportable Estimated GFR > 60 Glucose 308 H POC Capillary Glucose 394 H Calcium 9.6 Magnesium 2.0 Total Bilirubin 1.3 AST 33 ALT 35 Alkaline Phosphatase 72 Total Creatine Kinase 87 Troponin I < 0.012 Total Protein 7.9 Albumin 4.5 TSH (Reflex) 5.340 H Free T4 1.34 Total T3 1.91 H Urine Color Yellow Urine Appearance Clear Urine pH 6.0 Ur Specific [place] > 1.045 H Urine Protein 2+ H Urine Glucose (UA) 3+ H Urine Ketones 1+ H Ur Blood (Man) Negative Urine Nitrate Negative Urine Bilirubin Negative Urine Urobilinogen 1.0 Leukocyte Esterase Rfl Negative Urine RBC 0-2 Urine WBC 0-5 Ur Squamous Epith Cells None seen Urine Bacteria None seen Urine Casts 0-2 Influenza A (RT-PCR) Negative Influenza B (RT-PCR) Negative RSV (RT-PCR) Negative SARS-CoV-2 RNA (RT-PCR) Negative 10/20/25 10/21/25 21:58 07:54 WBC RBC Hgb Hct MCV MCH MCHC RDW Plt Count MPV Immature Gran % (Auto) Neut % (Auto) Lymph % (Auto) [place] % (Auto) Eos % (Auto) Baso % (Auto) Lymph # (Auto) [place] # (Auto) Eos # (Auto) Baso # (Auto) Abs Immat Gran (auto) Absolute Neuts (auto) Absolute Nucleated RBC Nucleated RBC % PT INR APTT Sodium Potassium Chloride Carbon Dioxide Anion Gap BUN Creatinine Estim Creat Clear Calc Estimated GFR Glucose POC Capillary Glucose 337 H 274 H Calcium Magnesium Total Bilirubin AST ALT Alkaline Phosphatase Total Creatine Kinase Troponin I Total Protein Albumin TSH (Reflex) Free T4 Total T3 Urine Color Urine Appearance Urine pH Ur Specific [place] Urine Protein Urine Glucose (UA) Urine Ketones Ur Blood (Man) Urine Nitrate Urine Bilirubin Urine Urobilinogen Leukocyte Esterase Rfl Urine RBC Urine WBC Ur Squamous Epith Cells Urine Bacteria Urine Casts Influenza A (RT-PCR) Influenza B (RT-PCR) RSV (RT-PCR) SARS-CoV-2 RNA (RT-PCR) Quality VTE Prophylaxis VTE prophylaxis: mechanical ordered
[2025-10-21] MEDS: INSULIN ASPART (*BKC) 100 UNITS/ML SUB-Q ×6 (08:29→22:10)
[2025-10-21] MEDS: INSULIN GLARGINE (*BKC) 100 UNITS/ML 14 UNITS SUB-Q (08:30)
--- NOTE | 2025-10-21 16:16 | P.PSYCH_ITS ---
Assessment and Plan Assessment and plan (1) Bereavement: Code(s): Z63.4 - Disappearance and of family member Status: Acute (2) Major depressive disorder, recurrent severe without psychotic features: Code(s): F33.2 - Major depressive disorder, recurrent severe without psychotic features Status: Acute (3) Generalized anxiety disorder: Code(s): F41.1 - Generalized anxiety disorder Status: Acute Plan Patient presenting with increased severity of underlying major depressive disorder in the context of grief related to his 's passing. Plan for discharge tomorrow. Current psychiatric medications are managed by his primary care provider. He expresses interest in tapering off of psychiatric medications, as he does not feel they are effective for him any longer, although reports he wants to focus on his physical health at this immediate time. Supportive therapy was provided today at bedside. Recommend continuing his current medication regimen as prescribed. Discussed with him following up on outpatient basis for medication management along with psychotherapy/counseling for additional support, which he is agreeable to. Office card left with patient to make apt, educated about walk in clinic for same day appointments. HPI Data of Consult Date/Time: 10/21/25 16:16 Requesting Physician: Robert Florentino MD Primary Care Provider: Cecilio Anaya MD Consult Narrative Narrative: Wallcae Rutherford is a 65 year old male admitted 10/20/2025 secondary to chest wall pain, difficulty caring for himself at home. Psychiatry has been consulted for this patient secondary to anxiety, history of depression, grief as a result of 's recent passing in July. Prior to admission, he is prescribed Wellbutrin, alprazolam, sertraline, and trazodone for management of his depression and anxiety. He reports a longstanding history of anxiety and depression, which he has been treated on and off for the past 20-30 years. He reports compliance with his treatment regimen, unsure of his most recent medication adjustment although was not recent per patient. He is reporting an increase in depressive symptoms since 's passing in July. His affect is sad and tearful throughout interview, although recalls and discusses several good memories with her. He does not have a current therapist, although expresses interest in establishing with one. Denies suicidal ideation. No history of manic symptoms or psychosis. Review of Systems 2 Psychiatric: Psychiatric: Reports as per HPI, Reports anxiety and Reports depression [facility] Past Medical History Medical History (Updated 10/21/25 @ 17:58 by Marcie Chandra, THOMAS) Major depressive disorder, recurrent severe without psychotic features Detached retina Head injury Angioedema Deep vein thrombosis (DVT) of calf muscle vein of right lower extremity Nasal septal deformity Pyogenic granuloma Acute stress disorder Strain of adductor muscle, fascia and tendon of right thigh, initial encounter Family History Family History Grandparent Diabetes mellitus Mother Diabetes mellitus Depression Family history of malignant neoplasm Social History Social History Social History: Caffeine-teac,coffee Smoking status: Never smoker Alcohol intake: never Substance use: never Substance use type: does not use Lack of Transportation: No Lack of Food: Never True Current Housing: I Have Housing Concerned About Future Housing: No Difficulty Paying Gas/Electric Bills: No Difficulty Paying for Meds: YES Currently Unemployed: No Education: High School Diploma/GED Difficulty w/ Childcare or Family Care: No Spiritual care concerns: No Meds Home Medications and Allergies Home Medications ?Medication ?Instructions ?Recorded ?Confirmed ?Type blood sugar diagnostic (OneTouch #100 ea 01/10/2109/25 Rx Ultra Blue Test Strip) aspirin 81 mg tablet,delayed 81 mg PO DAILY 02/20/22 1 12/20/24 History release (Adult Aspirin Regimen) inhalational spacing device #10 ea 01/24/23 10/20/25 R x (Aerochamber Plus Flow-Vu) latanoprost 0.005 % eye drops 1 drp EACH EYE QPM 06/2510/20/25 History albuterol sulfate 90 mcg/actuation 1 puff inhalation Q 4H PRN 08/31/24 10/20/25 Rx aerosol inhaler (Ventolin HFA) shortness of breath or wheezing #8.5 grams dapagliflozin propanediol 10 mg 10 mg PO DAILY #90 tab s 01/06/25 10/20/25 Rx tablet (Farxiga) Held on 10/20/25. Instructions: Patient no longer taking levothyroxine 200 mcg tablet 200 mcg PO DAILY #90 tabs 02/15/25 10/20/25 Rx (Synthroid) sertraline 100 mg tablet See Rx Instructions .Route 0 04/14/25 10/20/25 Rx .COMPLEX #180 tabs bupropion HCl 150 mg 24 hr tablet, 150 mg PO QAM #90 t abs 04/25/25 10/20/25 Rx extended release bupropion HCl 300 mg 24 hr tablet, See Rx Instructions .Route 05/13/25 10/20/25 Rx extended release .COMPLEX #90 tabs atorvastatin 10 mg tablet See Rx Instructions .Route 0 05/30/25 10/20/25 Rx .COMPLEX #90 tabs flash glucose sensor (FreeStyle #6 ea 06/27/25 5 Rx Gerardo 14 Day Sensor kit) Held on 10/20/25. Instructions: Patient no longer taking cyclobenzaprine 10 mg tablet 10 mg PO TID PRN muscle s pasm #30 06/29/25 10/20/25 Rx Held on 10/20/25. tabs Instructions: Patient no longer taking metformin 500 mg tablet,extended See Rx Instructions . Route 07/18/25 10/20/25 Rx release 24 hr .COMPLEX #360 tabs glyburide 5 mg tablet See Rx Instructions .Route 0 08/03/25 10/20/25 Rx .COMPLEX #180 tabs insulin glargine 100 unit/mL (3 14 unit (0.14 mL) subc ut BID #30 mL 09/09/25 10/20/25 Rx mL) subcutaneous pen (Lantus Solostar U-100 Insulin) pen needle, diabetic 32 gauge x See Rx Instructions .R oute 09/09/25 10/20/25 Rx (Unifine Pentips Plus) .COMPLEX #100 ea alprazolam 0.25 mg tablet 0.25 mg PO TID PRN anxiety # 60 tabs 09/16/25 10/20/25 Rx semaglutide 0.25 mg or 0.5 mg (2 0.25 mg subcut WEEKLY 09/16/25 10/20/25 History mg/3 mL) subcutaneous pen injector (Ozempic) Held on 10/20/25. Instructions: Patient no longer taking clonazepam 1 mg tablet (Klonopin) 1 mg PO BID #180 tab s 10/05/25 10/20/25 Rx acetaminophen 500 mg tablet 1,000 mg (2 x 500 mg) PO T ID PRN 10/17/25 10/20/25 Rx (Tylenol Extra Strength) pain #30 tabs ibuprofen 800 mg tablet 800 mg PO TID PRN pain #30 t abs 10/17/25 10/20/25 Rx lidocaine 5 % topical patch 1 patch topical DAILY #15 ea 10/17/25 10/20/25 Rx methocarbamol 750 mg tablet 750 mg PO TID PRN pain #20 tabs 10/17/25 10/20/25 Rx trazodone 50 mg tablet 50 mg PO HS 10/20/25 5 History Allergies Allergy/AdvReac Type Severity Reaction Status Date / Time lisinopril Allergy Severe Anaphylaxis Verified 10/20/25 14:51 losartan Allergy rash Verified 10/20/25 14:51 Vital Signs Vital Signs - 24 hr 10/20/25 17:45 10/20/25 20:00 10/20/25 21:14 Temperature Pulse Rate 84 Respiratory Rate Blood Pressure Pulse Oximetry 92 Oxygen Delivery Room Air Room Air Fraction of Inspired Oxygen 21 10/20/25 21:22 10/20/25 21:53 10/21/25 00:00 Temperature 97.7 F Pulse Rate 83 81 Respiratory Rate 18 Blood Pressure 156/87 H Pulse Oximetry 95 Oxygen Delivery Room Air Fraction of Inspired Oxygen 10/21/25 04:00 10/21/25 04:15 10/21/25 08:05 Temperature 97.2 F L Pulse Rate 68 69 82 Respiratory Rate 18 Blood Pressure 169/84 H Pulse Oximetry 95 Oxygen Delivery Fraction of Inspired Oxygen 10/21/25 09:44 10/21/25 10:03 10/21/25 12:05 Temperature Pulse Rate 78 Respiratory Rate Blood Pressure Pulse Oximetry Oxygen Delivery Room Air Room Air Fraction of Inspired Oxygen 10/21/25 14:00 Temperature 97.1 F L Pulse Rate 80 Respiratory Rate 18 Blood Pressure 177/92 H Pulse Oximetry 94 Oxygen Delivery Fraction of Inspired Oxygen Exam 2 Psych: Appearance: grossly normal Mental Status: mental status grossly normal Speech and movement: Normal speech and movement present Affect: Sad affect present Attitude: cooperative Thought process: Normal thought process present Thought content: Yes Normal thought content present I nsight: Good insight present (Psych) Judgement: Good judgement present (Psych) Results Labs 10/20/25 09:40 10/20/25 09:40
[2025-10-21] MEDS: INSULIN GLARGINE (*BKC) 100 UNITS/ML 18 UNITS SUB-Q (17:14)
[2025-10-21] MEDS: oxyCODONE HCL (*CRX) 5 MG TAB IR 10 MG PO (17:16)
[2025-10-21] MEDS: LATANOPROST 0.005% OP SOLN 2.5 ML BTL 1 DROP EACH EYE (17:20)
[2025-10-21] MEDS: SENNOSIDES 8.6 MG TABLET PO (20:57)
[2025-10-21] MEDS: ATORVASTATIN 10 MG TABLET BY MOUTH (20:58)
[2025-10-21] MEDS: ARTIFICIAL TEARS OPHTH SOLN 15 ML BOTTLE 1 DROP EACH EYE (23:30)
[2025-10-21] MEDS: clonazePAM (*CRX) 0.5 MG TABLET 1 MG PO (23:40)
[2025-10-22] VITALS: PULSE 66
[2025-10-22] MEDS: KETOROLAC 15 MG/ML VIAL (*BKC) IV PUSH ×2 (02:50→08:56)
[2025-10-22 04:00] VITALS: PULSE 66
[2025-10-22 05:31] VITALS: BP 146/87; PULSE 66; RESP 18; TEMP 36.1; O2SAT 97
[2025-10-22] MEDS: LEVOTHYROXINE SODIUM 100 MCG TABLET 200 MCG PO (06:07)
[2025-10-22] MEDS: ACETAMINOPHEN 325 MG TABLET 650 MG PO (06:07)
[2025-10-22 06:15] LABS: Hematocrit 42.5 % (42.0-52.0); Hemoglobin 14.0 g/dL (14.0-18.0); Immature Granulocyte Percent A 0.6 % (0-0.5); Lymphocytes Absolute Auto 2.32 K/mm3 (0.9-3.2); Mean Corpuscular HGB Conc 32.9 g/dl (32-36); Mean Corpuscular Hemoglobin 27.8 pg (26-34); Mean Corpuscular Volume 84.3 fl (80-100); Nucleated Red Blood Cells Absolute Auto 0.000 K/mm3 (0.0-0.012); Nucleated Red Blood Cells Perc 0.0 % (0.0-0.2); Platelet Count Result 232 k/mm3 (150-375); Red Blood Count 5.04 M/mm3 (4.6-6.20); White Blood Count 8.3 K/mm3 (4.5-10.0)
[2025-10-22 06:31] LABS: Alanine Aminotransferase 33 U/L (6-50); Albumin Level 3.7 g/dL (3.5-5.1); Alkaline Phosphatase 61 U/L (38-126); Anion Gap 4 mmol/L (4-12); Aspartate Amino Transferase 38 U/L (17-59); Bilirubin,Total 0.9 mg/dL (0.2-1.3); Blood Urea Nitrogen 22 mg/dL (9-20); Calcium 8.7 mg/dL (8.4-10.2); Carbon Dioxide 31 mmol/L (22-30); Chloride 100 mmol/L (98-107); Estimated CRCL calculation 127 ml/min; Estimated Glomerular Filt Rate > 60; Glucose 267 mg/dL (65-110); Potassium 3.7 mmol/L (3.4-5.0); Sodium 135 mmol/L (137-145); Total Protein 6.6 g/dL (6.3-8.2)
[2025-10-22 08:50] VITALS: PULSE 69; O2SAT 97
[2025-10-22] MEDS: INSULIN GLARGINE (*BKC) 100 UNITS/ML 18 UNITS SUB-Q (08:50)
[2025-10-22] MEDS: INSULIN ASPART (*BKC) 100 UNITS/ML SUB-Q ×2 (08:51)
[2025-10-22] MEDS: SERTRALINE HCL 50 MG TABLET 100 MG BY MOUTH (08:56)
[2025-10-22] MEDS: ASPIRIN 81 MG ENTERIC TABLET PO (08:58)
[2025-10-22] MEDS: buPROPion HCL XL (24 HR) 150 MG TABCR 450 MG BY MOUTH (08:58)
[2025-10-22] MEDS: LIDOCAINE 5% PATCH 1 PATCH TRANSDERM (08:58)
--- NOTE | 2025-10-22 10:39 | P.DS_ITS ---
DS: Admitting Diagnosis Discharge Date 10/22/25 Admitting Diagnosis Rib fractures, bereavement DS: Discharge Diagnosis Discharge Diagnosis (1) Multiple fractures of ribs of right side: Qualifiers: Encounter type: initial encounter Fracture type: closed Qualified Code(s): S22.41XA - Multiple fractures of ribs, right side, initial encounter for closed fracture Code(s): S22.41XA - Multiple fractures of ribs, right side, initial encounter for closed fracture Status: Acute (2) Bereavement: Code(s): Z63.4 - Disappearance and of family member Status: Acute (3) Type 2 diabetes mellitus with diabetic dermatitis: Code(s): E11.620 - Type 2 diabetes mellitus with diabetic dermatitis Status: Acute (4) Hypothyroidism (acquired): Code(s): E03.9 - Hypothyroidism, unspecified Status: Acute (5) Weakness: Code(s): R53.1 - Weakness Status: Acute (6) Gait disturbance: Code(s): R26.9 - Unspecified abnormalities of gait and mobility Status: Acute DS: Summary Hospital Course Reason for hospitalization: Chest wall pain Hospital Course: For HPI: 65-year-old male with past medical history of diabetes, presents the hospital with chest wall pain. On 10/17/2025 patient had a fall and presented to the hospital chest x-ray at that time did not show any rib fractures and he was sent home pain management. Since then patient has not been able to do his ADLs and also acute pain. On assessment patient is unable to talk in full sentences has short shallow breathing, and grunting. Pain meds adjusted. No hypoxia or respiratory distress noted. In the ED the patient states that he was noncompliant with his medications however at bedside he states that he has been compliant has . He states that he has recently seen his PCP and that they are adjusting his Synthroid and diabetic medications at home. Patient denies fevers chills nausea or vomiting. He does state that he has this shuffling gait. And upper extremity tremors are noted at rest. Lab work in the ED shows leukocytosis at 10.7 INR 1.2, sodium of 135, creatinine of 0.56, blood glucose of 308, troponin negative, TSH elevated at 5.34 and T3 elevated at 1.91, UA negative for infection, influenza A/B RSV COVID negative. Head CT shows no acute findings chest x-ray with right rib fractures 8 the . Hemoglobin A1c on 09/09/2025 was 11.0. Hospital course: The patient is a 65-year-old male with a complex medical history including type 2 diabetes mellitus (with poor glycemic control, A1c 11.0), hypothyroidism, major depressive disorder, generalized anxiety disorder, and recent bereavement following his ?s in July. He presented with acute right-sided chest wall pain following a fall on 10/17/25. Initial chest x-ray at an outside facility was negative for fracture, but persistent pain and functional decline led to re-presentation. On admission, he was found to have nondisplaced fractures of the right 8th and 9th ribs on repeat imaging. He reported significant pain limiting his ability to perform activities of daily living, with shallow, grunting respirations but no hypoxia or acute respiratory distress. Pain was managed with a multimodal regimen including acetaminophen, lidocaine patch, methocarbamol, ketorolac, and PRN oxycodone, with improvement noted during hospitalization. Incentive spirometry was initiated for pulmonary hygiene. His diabetes regimen was adjusted due to hyperglycemia (admission glucose 308 mg/dL, urine with 3+ glucose and 2+ protein, and 1+ ketones), and home oral agents (metformin, semaglutide, dapagliflozin) were held. Insulin glargine was increased to 18 units BID, and scheduled insulin aspart with SSI was started. He was counseled on diabetic diet and a diabetes physician was consulted, as he admitted to poor dietary habits (mainly drinking soda at home) and difficulty affording medications. Electrolytes were notable for mild hyponatremia (Na 135), and renal function was preserved (Cr 0.56). There was mild leukocytosis (WBC 10.7) but no evidence of infection. TSH was elevated (5.34) with normal free T4 and elevated T3, and he was continued on his home levothyroxine. The patient also exhibited a shuffling gait and resting upper extremity tremor, raising concern for possible parkinsonism or diabetic neuropathy; outpatient neurology referral was recommended, and PT/OT evaluation was initiated with consideration for rehab placement. Psychiatry was consulted for worsening depression and anxiety in the context of bereavement. He was found to be taking both alprazolam and clonazepam in addition to sertraline, bupropion, and trazodone, raising concern for polypharmacy. He denied suicidal ideation but expressed ongoing grief and interest in outpatient therapy. Supportive counseling was provided, and he was advised to continue his current psychiatric regimen pending outpatient follow-up. Throughout his stay, blood pressure remained elevated (noted up to 207/101), but there was no evidence of end-organ damage. DVT prophylaxis was provided with SCDs. The patient?s pain and anxiety improved with treatment, and he was able to participate in care. Discharge planning focused on continued glycemic management, pain control, psychiatric follow-up, and outpatient neurology eval uation, with anticipated discharge once blood glucose was better controlled. Status at Discharge Functional status at discharge: independent ambulation Overall status at discharge: patient is progressing back to baseline Time Spent with Patient Time attestation: Total time spent providing and/or coordinating discharge services: Exam Narrative: General: NAD Eyes: EOMI ENT: neck supple Cardiovascular: Regular rate and rhythm Respiratory: Clear to auscultation, respirations even and unlabored on RA Gastrointestinal: Soft, non tender Genitourinary: no suprapubic tenderness Musculoskeletal: No edema Skin: warm, dry Neuro: Alert. Psych: anxious DS: Data Data Completed and Pending Labs on day of discharge: Labs from last 24 hours 10/22/25 10/22/25 10/21/25 08:12 05:43 23:13 WBC 8.3 RBC 5.04 Hgb 14.0 Hct 42.5 MCV 84.3 MCH 27.8 MCHC 32.9 RDW 13.0 Plt Count 232 MPV 10.0 Immature Gran % (Auto) 0.6 H Neut % (Auto) 55.0 Lymph % (Auto) 28.0 [facility] % (Auto) 7.6 Eos % (Auto) 8.2 H Baso % (Auto) 0.6 Lymph # (Auto) 2.32 [facility] # (Auto) 0.6 Eos # (Auto) 0.7 H Baso # (Auto) 0.1 Abs Immat Gran (auto) 0.05 H Absolute Neuts (auto) 4.6 Absolute Nucleated RBC 0.000 Nucleated RBC % 0.0 Sodium 135 L Potassium 3.7 Chloride 100 Carbon Dioxide 31 H Anion Gap 4 BUN 22 H Creatinine 0.64 L Estim Creat Clear Calc 127 Estimated GFR > 60 Glucose 267 H POC Capillary Glucose 300 H 308 H Calcium 8.7 Total Bilirubin 0.9 AST 38 ALT 33 Alkaline Phosphatase 61 Total Protein 6.6 Albumin 3.7 10/21/25 10/21/25 10/21/25 20:42 16:57 12:11 WBC RBC Hgb Hct MCV MCH MCHC RDW Plt Count MPV Immature Gran % (Auto) Neut % (Auto) Lymph % (Auto) [facility] % (Auto) Eos % (Auto) Baso % (Auto) Lymph # (Auto) [facility] # (Auto) Eos # (Auto) Baso # (Auto) Abs Immat Gran (auto) Absolute Neuts (auto) Absolute Nucleated RBC Nucleated RBC % Sodium Potassium Chloride Carbon Dioxide Anion Gap BUN Creatinine Estim Creat Clear Calc Estimated GFR Glucose POC Capillary Glucose 378 H 290 H 302 H Calcium Total Bilirubin AST ALT Alkaline Phosphatase Total Protein Albumin Discharge Plan Discharge Attending physician on discharge: Heladio Ch Consulting providers: Chelsi Anton; Adama Ybarra; Tyrone Hyman Discharging Clinician: Tyrone Hyman Anticipated Discharge Date/Time: 10/22/25 10:35 Patient Disposition: Home Activity: as tolerated Diet: regular Discharge Instructions: Discharge disposition: Home Take medications as prescribed. Continue taking your Klonopin and Xanax at home. Continue taking Naproxen 500mg twice daily for the next 5 days for continued pain relief. Monitor blood pressures Take caution while standing, rising, or moving Change positions slowly taking a break between each position change If you standing feel dizzy sit back down and take a break Encouraged to continue with yearly vaccinations Return to the emergency department if you develop sudden shortness of breath, chest pain, nausea, vomiting, upset stomach or intractable diarrhea Return to the emergency department if you develop fever greater than 101.5 Follow-up with the primary care physician within 1-2 weeks for any adjustments regarding your Klonopin or Xanax Follow-up with Dr. Farris of Neurology regarding further possible workup your shuffling gait/tremor. Thank you for choosing [facility] for your healthcare needs Patient Instructions: Antibiotic Form, Foot Care for People with Diabetes (DC), Basic Carbohydrate Counting (DC), Meal Planning with Diabetes Exchanges (DC), Diabetes and Your Skin (ED), Diabetes and Nutrition (DC) Patient Language: Latvian Stand Alone Forms: General Discharge Information Follow-up/Referrals: Cecilio Anaya MD [Primary Care Provider, Family Practice] Sage Farris MD [Physician, Neurology] Discharge Medications: New naproxen 500 mg tablet 500 mg PO BID 5 Days Qty: 10 0RF Continued aspirin [Adult Aspirin Regimen] 81 mg tablet,delayed release (DR/EC) 81 mg PO DAILY dapagliflozin propanediol [Farxiga] 10 mg tablet 10 mg PO DAILY Qty: 90 3RF Patient Comments: not taking latanoprost 0.005 % drops 1 drp EACH EYE QPM alprazolam 0.25 mg tablet 0.25 mg PO TID PRN (Reason: anxiety) Qty: 60 0RF trazodone 50 mg tablet 50 mg PO HS ibuprofen 800 mg tablet 800 mg PO TID PRN (Reason: pain) Qty: 30 0RF acetaminophen [Tylenol Extra Strength] 500 mg tablet 1,000 mg PO TID PRN (Reason: pain) Qty: 30 0RF methocarbamol 750 mg tablet 750 mg PO TID PRN (Reason: pain) Qty: 20 0RF lidocaine 5 % adhesive patch,medicated 1 patch topical DAILY Qty: 15 0RF Rx Instructions: leave on most painful area for up to 12 hrs (DME) Aerochamber Plus Flow-Vu Spacer See Rx Instructions .Route Qty: 10 0RF Rx Instructions: As directed albuterol sulfate [Ventolin HFA] 90 mcg/actuation HFA aerosol inhaler 1 puff INHALATION Q4H PRN (Reason: shortness of breath or wheezing) Qty: 8.5 3RF levothyroxine [Synthroid] 200 mcg tablet 200 mcg PO DAILY Qty: 90 1RF sertraline 100 mg tablet See Rx Instructions .ROUTE .COMPLEX Qty: 180 1RF Dose Instruction: TAKE ONE TABLET BY MOUTH TWICE A DAY Rx Instructions: TAKE ONE TABLET BY MOUTH TWICE A DAY bupropion HCl 150 mg tablet extended release 24 hr 150 mg PO QAM Qty: 90 1RF Rx Instructions: to be taken with 300mg for total of 450mg total q day bupropion HCl 300 mg tablet extended release 24 hr See Rx Instructions .ROUTE .COMPLEX Qty: 90 1RF Dose Instruction: TAKE ONE TABLET BY MOUTH ONCE DAILY Rx Instructions: TAKE ONE TABLET BY MOUTH ONCE DAILY atorvastatin 10 mg tablet See Rx Instructions .ROUTE .COMPLEX Qty: 90 1RF Dose Instruction: TAKE ONE TABLET BY MOUTH ONCE DAILY Rx Instructions: TAKE ONE TABLET BY MOUTH ONCE DAILY cyclobenzaprine 10 mg tablet 10 mg PO TID PRN (Reason: muscle spasm) Qty: 30 2RF metformin 500 mg tablet extended release 24 hr See Rx Instructions .ROUTE .COMPLEX Qty: 360 1RF Dose Instruction: Take 2 Tablets (1,000 mg) by mouth 2 times daily. Rx Instructions: Take 2 Tablets (1,000 mg) by mouth 2 times daily. glyburide 5 mg tablet See Rx Instructions .ROUTE .COMPLEX Qty: 180 1RF Dose Instruction: Take 1 Tablet (5 mg) by mouth 2 times daily. Rx Instructions: Take 1 Tablet (5 mg) by mouth 2 times daily. pen needle, diabetic [Unifine Pentips Plus] 32 gauge x 5/ needle See Rx Instructions .ROUTE .COMPLEX Qty: 100 1RF Dose Instruction: Use with Insulin Pen for injections. Rx Instructions: Use with Insulin Pen for injections. insulin glargine [Lantus Solostar U-100 Insulin] 100 unit/mL (3 mL) insulin pen 14 unit subcut BID Qty: 30 1RF clonazepam [Klonopin] 1 mg tablet 1 mg PO BID Qty: 180 1RF Discontinued Ozempic 0.25 mg or 0.5 mg (2 mg/3 mL) pen injector 0.25 mg subcut WEEKLY Rx Instructions: for 4 weeks (DME) OneTouch Ultra Blue Test Strip Strip See Rx Instructions .ROUTE .MEDSUPPLY Qty: 100 3RF Rx Instructions: As directed bid and prn (DME) FreeStyle Gerardo 14 Day Sensor Kit See Rx Instructions .ROUTE .MEDSUPPLY Qty: 6 3RF Rx Instructions: As directed Date of admission: 10/20/25 12:34 Primary Care Provider: Cecilio Anaya Admitting Provider: Tomas Florentino Attending physician on admission: Tomas Florentino Condition: Stable Quality VTE Prophylaxis VTE prophylaxis: mechanical ordered
--- NOTE | 2025-10-24 14:08 | PC.NURSE ---
This RN performed d/c phone call at this time. Pt inquired about receiving glucose strips. Pt referred to pharmacy.
== END 2025-10-22 12:13 | disposition home or self-care (01) ==
LOC: ANHED 09:30 → ANH3MED 13:35
PROVIDERS: Physician Assistant; Admitting Provider Internal Medicine; Emergency Provider Physician Assistant; PCP Family Medicine; Visit Provider Internal Medicine
DX: S22.41XA Multiple fractures of ribs, right side, initial encounter for closed fracture (principal); W18.30XA Fall on same level, unspecified, initial encounter; R53.1 Weakness; R26.9 Unspecified abnormalities of gait and mobility; R79.89 Other specified abnormal findings of blood chemistry; F33.2 Major depressive disorder, recurrent severe without psychotic features; E11.620 Type 2 diabetes mellitus with diabetic dermatitis; E03.9 Hypothyroidism, unspecified; F43.9 Reaction to severe stress, unspecified; Z63.4 Disappearance and death of family member; Z86.718 Personal history of other venous thrombosis and embolism; Z79.82 Long term (current) use of aspirin; Z79.4 Long term (current) use of insulin; Z79.85 Long-term (current) use of injectable non-insulin antidiabetic drugs; Z79.84 Long term (current) use of oral hypoglycemic drugs; Z20.822 Contact with and (suspected) exposure to COVID-19
CPT/HCPCS: 36415; 70450; 71046; 71100; 80053; 81001; 82550; 82948; 83735; 84439; 84443; 84480; 84484; 85025; 85610; 85730; 87637; 93005; 96361; 96374; 96375; 97161; 97165; 99285; A9270; G0378; J0360; J1815; J1885; J2270; J7030